=== PATIENT | male | born 1965 | race Caucasian/White ===

== ENCOUNTER 2024-10-06 14:21 | Emergency (ER) | payer OTHER, SELFPAY ==
--- OUTSIDE RECORDS SUMMARY | 2024-10-06 14:34 | XMS_ITS | Encounter Summary ---
Author Organization [facility] Address [address] [place] [address] Phone Care Team Providers Care Denture Technician Name Role Phone Chris Wong MD Unavailable Abigail Hernandez APRN, LAUNDRY HOUSEKEEPING AIDE Unavailable +- [phone] Lamont Cerda MD Primary Care Provider [phone] Karlie Cloud APRN, LAUNDRY HOUSEKEEPING AIDE Unavailable [phone] Encounter Details Date Type Department Care Team (Late st Contact Info) Description 09/16/2024 Results Follow-Up [facility] - Pulmonology & Sleep Medicine [facility] #2 [place] [id number] Karlie Cloud APRN, LAUNDRY HOUSEKEEPING AIDE #[address] [address] Social History Tobacco Use Types Packs/Day Years Used Date Smoking Tobacco: Former Cigarettes Q uit: 03/06/2004 Smokeless Tobacco: Never Alcohol Use Standard Drinks/Week Comments No 0 (1 standard drink = 0.6 oz pur e alcohol) [facility] Utilities Answer Date Recorded In the past 12 months has e electric, gas, oil, or water company threatened to shut off services in your home? Patient declined 11/13/2023 Social Connection and Isolation Panel [NHANES] A nswer Date Recorded In a typical week, how many times do you talk on the phone with family, friends, or neighbors? Patient declined 11/13/2023 How often do you get togethe r with friends or relatives? Patient declined 11/13/2023 How often do you attend yazidi or presybeterian serv ices? Patient declined 11/13/2023 Do you belong to any clubs o r organizations such as yazidi groups, unions, fraternal or athletic groups, or school groups? Patient declined 11/13/2023 How often do you attend meet ings of the clubs or organizations you belong to? Patient declined 11/13/2023 Are you , , di vorced, , never , or living with a partner? Patient declined 11/13/2023 AUDIT-C Answer Date Recorded Q1: How often do you have a drink containing alc ohol? Patient declined 11/13/2023 Q2: How many drinks containi ng alcohol do you have on a typical day when you are drinking? Patient declined 11/13/2023 Q3: How often do you have si x or more drinks on one occasion? Patient declined 11/13/2023 Overall Financial Resource Strain (CARDIA) Answe r Date Recorded How hard is it for you to pa y for the very basics like food, housing, medical care, and heating? Patient declined 11/13/2023 PHQ-2 Answer Date Recorded Total Score - Questions 1-9 8 10/0 11/2022 [facility] - Occupational Stress Questionnaire Answer Date Recorded Do you feel stress - tense, restless, nervous, or anxious, or unable to sleep at night because your mind is troubled all the time - these days? Patient declined 11/13/2023 Exercise Vital Sign Answer Date Recorde d On average, how many days pe r week do you engage in moderate to strenuous exercise (like a brisk walk)? Patient declined On average, how many minutes do you engage in exercise at this level? Patient declined 11/13/2023 Hunger Vital Sign Answer Date Recorded Within the past 12 months, y ou worried that your food would run out before you got the money to buy more. Patient declined Within the past 12 months, t he food you bought just didn't last and you didn't have money to get more. Patient declined PRAPARE - Transportation Answer Date Re corded In the past 12 months, has l ack of transportation kept you from medical appointments or from getting medications? Patient declined 11/13/2023 In the past 12 months, has l ack of transportation kept you from meetings, work, or from getting things needed for daily living? Patient declined 11/13/2023 Housing Stability Vital Sign Answer Gilberto e Recorded In the last 12 months, was t here a time when you were not able to pay the mortgage or rent on time? Patient declined 11/13/19 24 Number of Places Lived in the Last Year Not on f ile 11/13/2023 In the last 12 months, was t here a time when you did not have a steady place to sleep or slept in a long term (including now)? Patient declined 11/13/2023 Sexually Active Control Partners Comments Yes Female Sex and Gender Information Value Date Recorded Sex Assigned at Not on file Legal Sex Male 12:35 AM CDT Gender Identity Not on file Sexual Orientation Not on file documented as of this encounter Plan of Treatment Upcoming Encounters Date Type Department Care Team (Late st Contact Info) Description 11/18/2024 9:00 AM CDT [facility] - [facility]iology - [place] #2 [place] [address] Abigail Hernandez APRN, LAUNDRY HOUSEKEEPING AIDE #2 [facility] [address] [place] [address] 11/28/2024 10:30 AM CDT Office [facility] - Family Medicine - [place] #2 [place] [address] Brian Colbert, CORPORATE GENERAL MANAGER, LAUNDRY HOUSEKEEPING AIDE #2 [facility] [address] [place] [address] 03/16/2025 8:30 AM CDT [facility] - [place] #2 [place] [address] Karlie Cloud APRN, LAUNDRY HOUSEKEEPING AIDE #[address] [facility] [address] [place] [address] documented as of this encounter Visit Diagnoses Not on filedocumented in this encounter Additional Health Concerns Assessment Noted Time PHQ-9 Depression Total Score: 8 05/30/20 23 10:39 AM CDT documented as of this encounter Care Teams Denture Technician Relationship Specialty Start Date End Date Lamont Cerda MD [address] [facility] [address] [place] [address] PCP - General Family Medicine 09/10/23 Chris Wong MD [address] [place] [address] Consulting Physician Pulmonary Disease 11/15/21 Abigail Hernandez APRN, LAUNDRY HOUSEKEEPING AIDE #2 [facility] [address] [place] [address] Nurse Practitioner Cardiology 08/22/23 Karlie Cloud APRN, GIRMA #[address] [facility] [address] [place] [address] Nurse Practitioner Advanced Practice Nurse 11/20/22 documented as of this encounter
--- OUTSIDE RECORDS SUMMARY | 2024-10-06 14:34 | XMS_ITS | Referral Summary ---
Author Organization [facility] Address [address] [place] [address] Care Team Providers Care Tax Revenue Officer Name Role Phone Lamont Cerda MD Primary Care Provider [phone] Allergies Active Allergy Reactions Criticality Noted Date Comments Naproxen Shortness of breath High 06/14/2024 Dye Vomiting Low 12/02/2017 ivp dye Fd And C Red No.40 Vomiting Low 12/02/2017 ivp dye Fentanyl Other (See comments) Low 11/14/2023 States during another procedure received Fentanyl and caused a bad reaction where he had to be given a reversal agent, does not remember exactly the reaction. Ibuprofen Shortness of breath High 11/14/2023 Iodinated Contrast Media Itching High 09/13/2020 Pregabalin Other (See comments) Low 10/17/2023 Blurry vision Red Dye Diarrhea Low 12/02/2017 ivp dye Medications albuterol HFA (PROVENTIL HFA,VENTOLIN HFA,PROAIR HFA) 90 mcg/actuation inhaler Inhale 2 puffs every 6 (six) hours as needed for wheezing Active fluticasone (FLONASE) 50 mcg/actuation nasal spray Administer 1 spray into each nostril 2 (two) times a day as needed for rhinitis Active Breztri Aerosphere 160-9-4.8 mcg/actuation inhaler INHALE 2 PUFFS BY MOUTH IN THE MORNING AND AT BEDTIME Active gabapentin (NEURONTIN) 100 mg capsule Take 1 capsule (100 mg total) by mouth 3 (three) times a day Active montelukast (SINGULAIR) 10 mg tablet Take 1 tablet (10 mg total) by mouth nightly [address] (PROTONIX) 40 mg EC tablet Take 1 tablet (40 mg total) by mouth daily Active multivitamin with minerals tablet Take 1 tablet by mouth daily Active aspirin 81 mg enteric coated tablet Take 1 tablet (81 mg total) by mouth daily Active ascorbic acid (VITAMIN C) 500 mg tablet,chewable Take 1 tablet/chew tab (500 mg total) by mouth 2 (two) times a day 60 tablet/chew tab 4 Active Additional Information Patient not taking.Reported on 06/14/2024 cholecalciferol (VITAMIN D-3) 2000 unit capsule Take 1 capsule (2,000 Units total) by mouth daily 15 capsule 4 Active Additional Information Patient not taking.Reported on 06/14/2024 ondansetron (ZOFRAN) 4 mg tabletIndicatio ns:Prevention of Post-Operative Nausea and Vomiting Take 1 tablet (4 mg total) by mouth every 6 (six) hours as needed for nausea or vomiting 20 tablet 1 4 Active Additional Information Patient not taking.Reported on 03/07/2024 senna-docusate (PERICOLACE) 8.6-50 mg Take 1 tablet by mouth 2 (two) times a day as needed for constipation 20 tablet 1 4 Active Additional Information Patient not taking.Reported on 03/07/2024 HYDROcodone-arlin taminophen (NORCO) 5-325 mg per tabletIndicatio ns:Pain Take 1 tablet by mouth every 6 (six) hours as needed for pain 15 tablet 4 Active Additional Information Patient not taking.Reported on 03/07/2024 azithromycin (ZITHROMAX) 250 mg tablet Take 2 tablets the first day, then 1 tablet daily for 4 days. 6 tablet 4 Active Active Problems Problem Noted Date Diagnosed Date Carpal tunnel syndrome on left 02/11/2024 Cubital tunnel syndrome on left 02/11/2024 Carpal tunnel syndrome on right 11/12/2023 Cubital tunnel syndrome on right 11/12/2023 Bilateral carpal tunnel syndrome 09/13/2023 Obesity (BMI 30-39.9) 09/13/2023 Asthma 01/01/2019 COPD (chronic obstructive pulmonary disease) 03/2019 Gout 01/01/2019 Renal stone 12/20/2018 Overview (12/20/2018): Added automatically from request for surgery KADIE (obstructive sleep apnea) 03/20/2017 Non morbid obesity due to excess calories 2016 Panlobular emphysema 03/20/2017 Social History Tobacco Use Types Packs/Day Years Used Date Smoking Tobacco: Former Cigarettes 1.5 8 2 004 - 2011 Smokeless Tobacco: Never Tobacco Cessation:Counseling Given: Not Answered Alcohol Use Standard Drinks/Week Comments Not Currently 0 (1 standard drink = 0.6 oz pur e alcohol) AUDIT-C Answer Date Recorded Q1: How often do you have a drink containing alcohol? Monthly or less 02/12/2024 Q2: How many drinks containi ng alcohol do you have on a typical day when you are drinking? Patient does not drink Q3: How often do you have si x or more drinks on one occasion? Never 02/12/2024 Personal Safety Answer Date Recorded Have you ever been in or are you currently in a harmful physical or emotional relationship or is someone making you feel afraid or unsafe? 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 Gender Identity Not on file Sexual Orientation Not on file Last Filed Vital Signs Vital Sign Reading Time Taken Comments Blood Pressure 104/74 06/14/2024 6:48 PM CDT Pulse 71 06/14/2024 6:48 PM CDT Temperature 36.1 C (97 F) 06/14/2024 6:48 PM CDT Respiratory Rate 18 06/14/2024 6:48 PM CDT Oxygen Saturation 97% 06/14/2024 6:48 PM CDT Inhaled Oxygen Concentration - - Weight 105.7 kg (233 lb) 06/14/2024 6:48 PM CDT Height 180.3 cm (5' 11 ) 06/14/2024 6:48 PM CDT Body Mass Index 32.5 06/14/2024 6:48 PM CDT Plan of Treatment Not on file Medical Devices Implanted Type Area Nailer Hand Device Identifier Shelf Expiration Date Model / Serial / Lot Findersfee Edgar 192-123 Polaris Ultra Nautilus 5fr 2.1fr 26cm 2 Durometer Taper Tip Low Latex Free - Sn/A - [id number] Implanted:Qty: 1 on 12/13/2018 by Adam Dee MD at [facility] Stent Right: [employer] [place] [employer] Edgar 09/01/2021 192-123 / N/A / [id number] Insurance Advance Directives For more information, please contact: [phone] * Full Code (Latest Code Status on File) Date Activated Date Inactivated Comments 01/09/2019 9:06 AM 01/09/2019 2:36 PM * Full Code Date Activated Date Inactivated Comments 12/13/2018 5:46 AM 12/13/2018 7:44 PM Care Teams Tax Revenue Officer Relationship Specialty Start Date End Date Lamont Cerda MD [address] [place] [address] PCP - General Family Medicine 09/26/24
--- OUTSIDE RECORDS SUMMARY | 2024-10-06 14:34 | XMS_ITS | Clinical Summary ---
Author Organization [facility] Address [address] [place] [address] Care Team Providers Care Cardiac Rehabilitation Program Director Name Role Phone Lamont Cerda MD Primary Care Provider [phone] Allergies Active Allergy Reactions Criticality Noted Date [...] to excess calories 2016 Panlobular emphysema 03/20/2017 Surgical History Surgery Date Site/Laterality Comments TONGUE SURGERY TONSILLECTOMY CYSTOSCOPY W/ URETERAL STENT PLACEMENT 11/25/2018 - 12/24 CARPAL TUNNEL RELEASE Right Medical History Medical History Date Comments Nephrolithiasis Gout Emphysema lung (HCC) Tobacco abuse Sleep apnea Obesity Asthma 01/01/2019 COPD (chronic obstructive pulmonary disease) (HC C) 01/01/2019 KADIE (obstructive sleep apnea) 03/20/2017 GERD (gastroesophageal reflux disease) Depression Delayed emergence from general anesthesia Family History Medical History Relation Name Comments Diabetes Brother Alcohol abuse Father Diabetes Father Heart attack Father Deep vein thrombosis Mother Heart attack Mother Gout Other Hypertension Other Kidney disease Other Lung disease Other Relation Name Status Comments Brother Father Mother Other Social History Tobacco Use Types Packs/Day Years Used Date Smoking Tobacco: Former Cigarettes 1.5 8 2 - 2011 Smokeless Tobacco: Never Tobacco Cessation:Counseling [...] on file 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 Gender Identity Not on file Sexual Orientation Not on file Obstetrics History Last Filed Vital Signs Vital Sign Reading [...] 06/14/2024 6:48 PM CDT Plan of Treatment Health Maintenance Due Date Last Done Comments Colon Cancer Screening-Colonoscopy 1967 Depression Screening 1967 Hepatitis C Screening 1967 Prostate Cancer Screening-PSA 1967 Pneumococcal vaccine <65 (1 of 2 - PCV) 1973 Hepatitis B Screening 1985 Regular Well Visit/Exam 18-64 1985 Zoster Vaccine (1 of 2) 2017 Covid-19 Vaccine (3 - season) 2024, 02/16/2021 Influenza Vaccine (#1) 2024 DTaP/Tdap/Td Vaccine (2 - Td or Tdap) 06/07/202507/2015 Medical Devices Implanted Type Area Roll Up Machine Operator Device Identifier Shelf Expiration Date Model / Serial / Lot Qminder Edgar 192-123 Polaris Ultra Nautilus 5fr 2.1fr 26cm 2 Durometer Taper Tip Low Latex Free - Sn/A - [id number] Implanted:Qty: 1 on 12/13/2018 by Adam Dee MD at [facility] Stent Right: [employer] [place] [employer] Edgar 09/01/2021 192-123 / N/A / [id number] Insurance Advance Directives For more information, please contact: [phone] * Full Code (Latest Code Status on File) Date Activated Date Inactivated Comments 01/09/2019 9:06 AM 01/09/2019 2:36 PM * Full Code Date Activated Date Inactivated Comments 12/13/2018 5:46 AM 12/13/2018 7:44 PM Care Teams Cardiac Rehabilitation Program Director Relationship Specialty Start Date End Date Lamont Cerda MD [address] [place] [address] PCP - General Family Medicine 09/26/24
--- OUTSIDE RECORDS SUMMARY | 2024-10-06 14:34 | XMS_ITS | Encounter Summary ---
Author Organization [facility] Address [address] [place] [address] Phone Care Team Providers Care Administrative Operations Coordinator Name Role Phone Chris Wong MD Unavailable Abigail Hernandez APRN, REGIONAL BUSINESS MANAGER Unavailable + [phone] Lamont Cerda MD Primary Care Provider [phone] Karlie Cloud APRN, REGIONAL BUSINESS MANAGER Unavailable [phone] Reason for Visit * Reason Comments Medication Refill Encounter Details Date Type Department Care Team (Late st Contact Info) Description 11/21/2023 Refill [facility] - Family Medicine [facility] #2 [place] [id number] Lamont Cerda MD #[address] [address] Medication Refill Social History Tobacco Use Types Packs/Day Years Used Date Smoking Tobacco: Former Cigarettes Q uit: 03/06/2004 Smokeless Tobacco: Never Alcohol Use Standard Drinks/Week Comments No 0 (1 standard drink = 0.6 oz pur e alcohol) [facility] Utilities Answer Date Recorded In the [...] declined 11/13/2023 How often do you attend mosque or bahai serv ices? Patient declined 11/13/2023 Do you belong to any clubs o r organizations such as mosque groups, unions, fraternal or athletic groups, or [...] Score - Questions 1-9 8 10/0 11/2022 [facility] - Occupational Stress Questionnaire Answer Date Recorded [...] place to sleep or slept in a senior living (including now)? Patient declined 11/13/2023 Sexually Active Control Partners Comments Yes Female Sex and Gender Information Value Date Recorded Sex Assigned at Not on file Legal Sex Male 12:35 AM CDT Gender Identity Not on file Sexual Orientation Not on file documented as of this encounter Miscellaneous Notes * Telephone Encounter - Lisa Zepeda RN - 11/21/2023 10:27 AM CDT Medication failed the protocol, provider to review and approve the medication order if appropriate. Requested Prescriptions Pending Prescriptions Disp Refills gabapentin (NEURONTIN) 100 MG Capsule [Pharmacy Med Name: GABAPENTIN 100MG CAPSULES] 90 Capsule 2 Sig: TAKE 1 CAPSULE BY MOUTH THREE TIMES DAILY Not Delegated - Anticonvulsants Excluding Benzodiazepines Protocol Failed - 11/21/2023 8:53 AM Failed - This refill cannot be delegated Passed - Visit with relevant provider in past 12 months or upcoming 90 days Recent Visits Date Type Provider Dept 11/13/23 Office Visit Brian Colbert APRN, GIRMA [facility] [place] 10/17/23 Telemedicine Lamont Cerda MD [facility] 09/13/23 Office Visit Lamont Cerda MD [facility] 05/30/23 Office Visit Cezar Worthington MD [facility] 11/29/22 Office Visit [facility] [place] Showing recent visits within past 365 days and meeting all other requirements Future Appointments Date Type Provider Dept 12/18/23 Appointment Lamont Cerda MD [facility] 02/04/24 Appointment Brian Colbert APRN, GIRMA [facility] Showing future appointments within next 90 days and meeting all other requirements documented in this encounter Plan of Treatment Upcoming Encounters Date Type Department Care Team (Late st Contact Info) Description 11/18/2024 9:00 AM CDT Office Visit [facility] Medical [facility] - Cardiology - [place] #2 [facility] [place] [address] Abigail Hernandez APRN, REGIONAL BUSINESS MANAGER #2 [facility] [address] [place] [address] 11/28/2024 10:30 AM CDT Office Visit [facility] Medical [facility] - Family Medicine - [place] #2 [facility] [place] [address] Brian Colbert APRN, REGIONAL BUSINESS MANAGER #2 [facility] [address] [place] [address] 03/16/2025 8:30 AM CDT Office Visit [facility] - Pulmonology & Sleep Medicine - [place] #2 [facility] [place] [address] Karlie Cloud APRN, REGIONAL BUSINESS MANAGER #2 [facility] [address] [place] [address] documented as of this encounter Visit Diagnoses Not on filedocumented in this encounter Additional Health Concerns Assessment Noted Time PHQ-9 Depression Total Score: 8 05/30/20 10:39 AM CDT documented as of this encounter Care Teams Administrative Operations Coordinator Relationship Specialty Start Date End Date Lamont Cerda MD #2 [facility] [address] [place] [address] PCP - General Family Medicine 09/10/23 Chris Wong MD [address] [place] [address] Consulting Physician Pulmonary Disease 11/15/21 Abigail Hernandez APRN, REGIONAL BUSINESS MANAGER #2 [facility] [address] [place] [address] Nurse Practitioner Cardiology 08/22/23 Karlie Cloud APRN, REGIONAL BUSINESS MANAGER #[address] [facility] [address] [place] [address] Nurse Practitioner Advanced Practice Nurse 11/20/22 documented as of this encounter
--- OUTSIDE RECORDS SUMMARY | 2024-10-06 14:34 | XMS_ITS | Encounter Summary ---
Author Organization [facility] Address [address] [place] [address] Phone Care Team Providers Care Oracle Applications Developer Name Role Phone Chris Wong MD Unavailable Jaz Beckham MD Primary Care Provider Unav ailable Provider, None Primary Care Provider Unavailcourtney e Chris Wong MD Unavailable Cezar Worthington MD Primary Care Provider [phone] Abigail Hernandez NEONATAL NURSE PRACTITIONER, INSURANCE SALES ASSISTANT Unavailable + [phone] Lamont Cerda MD Primary Care Provider [phone] Karlie Cloud APRN, INSURANCE SALES ASSISTANT Unavailable [phone] Reason for Visit * Reason Comments Medication Refill Encounter Details Date Type Department Care Team (Late st Contact Info) Description 09/23/2020 Refill [facility] #1 [place] [address] Chris Wong MD #2 [place] [address] Medication Refill Social History Tobacco Use Types Packs/Day Years Used Date Smoking Tobacco: Former Cigarettes Q uit: 03/06/2004 Smokeless Tobacco: Never Alcohol Use Standard Drinks/Week Comments No 0 (1 standard drink = 0.6 oz pur e alcohol) Sex and Gender Information Value Date Recorded Sex Assigned at Not on file Legal Sex Male 12:35 AM CDT Gender Identity Not on file Sexual Orientation Not on file COVID-19 Exposure Response Date Recorded In the last month, have you been in contact with someone who was confirmed or suspected to have Coronavirus / COVID-19? 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 documented as of this encounter Plan of Treatment Upcoming Encounters Date Type Department Care Team (Late st Contact Info) Description 11/18/2024 9:00 AM CDT Office Visit [facility] Medical [facility] - Cardiology - [place] #2 [place] [address] Abigail Hernandez NEONATAL NURSE PRACTITIONER, INSURANCE SALES ASSISTANT #2 [facility] [address] [place] [address] 11/28/2024 10:30 AM CDT Office Visit [facility] - Family Medicine - [place] #2 [place] [address] Brian Colbert, NEONATAL NURSE PRACTITIONER, INSURANCE SALES ASSISTANT #2 [facility] [address] [place] [address] 03/16/2025 8:30 AM CDT Office Visit [facility] Medical [facility] - Pulmonology & Sleep Medicine - [place] #[address] [place] [address] Karlie Cloud NEONATAL NURSE PRACTITIONER, INSURANCE SALES ASSISTANT #2 [facility] [address] [place] [address] documented as of this encounter Visit Diagnoses Not on filedocumented in this encounter Care Teams Oracle Applications Developer Relationship Specialty Start Date End Date Jaz Beckham MD PCP - General Family Medicine 01/05/17 11/14/21 Provider, None CT PCP - General 11/15/21 11/27/21 Cezar Worthington MD #2 [facility] [address] [place] [address] PCP - General Family Medicine 11/28/21 09/09/23 Lamont Cerda MD #[address] [facility] [address] [place] [address] PCP - General Family Medicine 09/10/23 Chris Wong MD Consulting Physician Pulmonary Disease 11/20/22 4 Chris Wong MD #[address] [place] [address] Consulting Physician Pulmonary Disease 11/15/21 Abigail Hernandez APRN, INSURANCE SALES ASSISTANT #2 [facility] [address] [place] [address] Nurse Practitioner Cardiology 08/22/23 Karlie Cloud APRN, INSURANCE SALES ASSISTANT #[address] [facility] [address] [place] [address] Nurse Practitioner Advanced Practice Nurse 11/20/22 documented as of this encounter
--- OUTSIDE RECORDS SUMMARY | 2024-10-06 14:34 | XMS_ITS | Clinical Summary ---
Author Organization [facility] Address [address] [facility] [place] [address] Phone Care Team Providers Care Child Care Center Administrator Name Role Phone Chris Wong MD Unavailable Abigail Hernandez APRN, CLAY MIXER Unavailable +- [phone] Lamont Cerda MD Primary Care Provider [phone] Karlie Cloud MEDICAL RECORDS MANAGER, CLAY MIXER Unavailable [phone] Allergies Active Allergy Reactions Criticality Noted Date Comments Iodinated Contrast Media Itching High 09/13/2020 Pregabalin Other (see Comments) 10/17/2023 Blurry vision Red Dye #40 (Allura Red) Vomiting Low 12/02/2017 ivp dye Medications montelukast (SINGULAIR) 10 MG Tablet TAKE 1 TABLET BY MOUTH EVERY EVENING 90 Tablet 3 05/29/20 23 Active aspirin EC 81 MG Tablet Delayed Response Take 81 mg by mouth daily. Active Multiple Vitamin (MULTIVITAMIN ADULT PO) Take 1 Tablet by mouth daily. Active Cholecalciferol (D2000 Ultra Strength) 2000 UNIT Capsule Take 2,000 Units by mouth. 11/14/19 24 Active ascorbic acid 500 MG Tablet Take 500 mg by mouth. 11/14/19 24 Active pantoprazole (PROTONIX) 40 MG Tablet Delayed Response TAKE 1 TABLET BY MOUTH DAILY 30 Tablet 11 02/21/20 24 Active ketorolac, ophth, (ACULAR) 0.5 % Solution 04/18/20 Active prednisoLONE acetate (PRED FORTE) 1 % Suspension 04/22/20 Active fluticasone (FLONASE) 50 MCG/ACT Suspension SHAKE LIQUID AND USE 2 SPRAYS IN EACH NOSTRIL DAILY DIRECTED 16 g 5 06/20/20 Active Budeson-Glycopyrro l-Formoterol 160-9-4.8 MCG/ACT AerosolIndications :Panlobular emphysema (HCC) take 2 Puffs by inhalation in the morning and at bedtime. 10.7 g 3 07/17/20 24 Active albuterol 108 (90 Base) MCG/ACT Aerosol Solution take 2 Puffs by inhalation every 4 hours as needed for Wheezing. 8.5 g 3 07/28/20 24 Active acetaminophen-code ine (TYLENOL #3) 300-30 MG TabletIndications: Left carpal tunnel syndrome Take 1 Tablet by mouth Daily as needed for Mild or more severe pain. 30 Tablet 08/13/20 Active fluticasone (FLONASE) 50 MCG/ACT Suspension 1 Naylor by Nasal route daily. Use in each nostril as directed. 16 g 1 08/13/20 Active Additional Information Patient not taking.Reported on 09/15/2024 gabapentin (NEURONTIN) 100 MG Capsule TAKE 1 CAPSULE BY MOUTH THREE TIMES DAILY 90 Capsule 2 08/16/20 Active azelastine (ASTELIN) 0.1 % SolutionIndication s:Chronic rhinosinusitis with multiple nasal polyps 2 Sprays by Nasal route 2 times daily. Use in each nostril as directed 39 mL 3 09/15/19 Active Dupilumab (Dupixent) 300 MG/2ML Solution Auto-injectorIndic ations:Chronic rhinosinusitis with multiple nasal polyps 2 mL by Subcutaneous route every 14 days. 4 mL 12 09/19/19 Active Active Problems Problem Noted Date Diagnosed Date Eosinophilic asthma 09/15/2024 Chronic rhinosinusitis with multiple nasal polyp s 09/15/2024 Subacute maxillary sinusitis 08/13/2024 History of cataract 04/30/2024 Seasonal allergies 04/30/2024 Left carpal tunnel syndrome 12/18/2023 Personal history of tobacco use, presenting hazards to health 12/18/2023 Ruptured aneurysm of ascending aorta 12/18/2023 Bilateral carpal tunnel syndrome 10/17/2023 Right carpal tunnel syndrome 09/13/2023 Obesity (BMI 30-39.9) 09/13/2023 KADIE (obstructive sleep apnea) 03/20/2017 Non morbid obesity due to excess calories 2016 Panlobular emphysema 03/20/2017 Encounters Date Type Department Care Team Description 09/17/2024 Telephone [facility] Pulmonology & Sleep [facility] [address] [place] [address] Karlie Clodu APRN, GIRMA Prior Authorization (Dupixent) 09/16/2024 Results Follow-Up [facility] Sleep [facility] [address] [place] [address] Karlie Cloud APRN, GIRMA 09/15/2024 9:00 AM INDEPENDENT JEWELER Office Visit [facility] Pulmonology Sleep [facility] [address] [place] [address] Karlie Cloud APRN, GIRMA KADIE (obstructive sleep apnea) (Primary Dx); Eosinophilic asthma; Chronic rhinosinusitis with multiple nasal polyps Discharge Disposition: Discharged to home or Selfcare 09/15/2024 Travel 08/16/2024 Refill [facility] #[address] [place] [address] Lamont Cerda MD Medication Refill 08/15/2024 [facility]phone [facility] [place] [address] Brian Colbert APRN, CLAY MIXER 08/13/2024 1:00 PM INDEPENDENT JEWELER Office Visit [facility] [address] [place] [address] Lamont Cerda MD Subacute maxillary sinusitis (Primary Dx); Left carpal tunnel syndrome; Obesity (BMI 30-39.9) Discharge Disposition: Discharged to home or Selfcare 08/13/2024 Travel 07/28/2024 [facility] [address] [place] [address] Karlie Cloud APRN, GIMRA Medication Refill 07/21/2024 [facility]ill [facility] [address] [place] [address] Karlie Cloud APRN, GIRMA Medication Refill 07/17/2024 [facility]ill [facility] [address] [place] [address] Chris Wong MD Medication Refill from Last 3 Months Immunizations Immunization Administration Dates Next Due TDAP Vaccine 06/07/2015 Family History Medical History Relation Name Comments Congestive Heart Failure Father Congestive Heart Failure Mother Relation Name Status Comments Father Mother Social History Tobacco Use Types Packs/Day Years Used Date Smoking Tobacco: Former Cigarettes Q uit: 03/06/2004 Smokeless Tobacco: Never Tobacco Cessation:Counseling Given: No Alcohol Use Standard Drinks/Week Comments No 0 (1 standard drink = 0.6 oz pur e alcohol) [facility] Utilities Answer Date Recorded In the [...] declined 11/13/2023 How often do you attend restoration or yazidi serv ices? Patient declined 11/13/2023 Do you belong to any clubs o r organizations such as restoration groups, unions, fraternal or athletic groups, or [...] Score - Questions 1-9 8 10/0 11/2022 [facility] - Occupational [...] place to sleep or slept in a assisted (including now)? Patient declined 11/13/2023 Sexually Active Control Partners Comments Yes Female Sex and Gender Information Value Date Recorded Sex Assigned at Not on file Legal Sex Male 12:35 AM CDT Gender Identity Not on file Sexual Orientation Not on file Last Filed Vital Signs Vital Sign Reading Time Taken Comments Blood Pressure 114/60 09/15/2024 9:01 AM INDEPENDENT JEWELER Pulse 59 09/15/2024 9:01 AM INDEPENDENT JEWELER Temperature 36.3 C (97.3 F) 09/15/2024 9:01 AM INDEPENDENT JEWELER Respiratory Rate 14 09/15/2024 9:01 AM INDEPENDENT JEWELER Oxygen Saturation 100% 09/15/2024 9:01 AM INDEPENDENT JEWELER Inhaled Oxygen Concentration - - Weight 105.6 kg (232 lb 11.2 oz) 09/15/2024 9:01 AM INDEPENDENT JEWELER Height 177.8 cm (5' 10 ) 09/15/2024 9:01 AM INDEPENDENT JEWELER Body Mass Index 33.39 09/15/2024 9:01 AM INDEPENDENT JEWELER Plan of Treatment Upcoming Encounters Date Type Department Care Team (Late st Contact Info) Description 11/18/2024 9:00 AM CDT Office Visit [facility] - Cardiology - [place] [address] [place] [address] Abigail Hernandez APRN, CLAY MIXER [address]2 [facility] [address] [place] [address] 11/28/2024 10:30 AM CDT [facility] Medicine - [place] [address] [place] [address] Brian Colbert, MEDICAL RECORDS MANAGER, CLAY MIXER #2 [facility] [address] [place] [address] 03/16/2025 8:30 AM CDT [facility] - [place] [address]2 [place] [address] Karlie Cloud, MEDICAL RECORDS MANAGER, CLAY MIXER [address] [facility] [address] [place] [address] Health Maintenance Due Date Last Done Comments Hepatitis C Virus (HCV) Screening 1967 Hepatitis B Immunization (1 of 3 - 19+ 3-dose series) 1986 Pneumococcal Immunization (5 0+ years) (1 of 2 - PCV) 1986 Colonoscopy 2012 Colorectal Cancer Screening 2012 Cologuard 2017 Immunochemical Fecal Occult Blood 2017 Zoster Immunization (1 of 2) 2017 Influenza Immunization (#1) 2024 SARS-COV-2 Immunization ( season) 2024 03/09/2021, 02/16/2021 Td Immunization Every 10 Yea rs (Adults With 1 Tdap) 06/07/2025 06/07/2015 Respiratory Syncytial Virus (RSV) Immunization (Adult) (1 - 1-dose 75+ series) 2042 DTaP/Tdap/Td Immunization Discontinued 06/07/2015 PSA Discussion Completed 09/14/2023, 11/28/2021 Meningococcal Immunization (ACWY) Aged Out No longer eligible based on patient's age to complete this topic Rotavirus Immunization Aged Out No lo nger eligible based on patient's age to complete this topic Medical Devices Implanted Type Area Burning Machine Operator Device Identifier Shelf Expiration Date Model / Serial / Lot Implant Nasal 16mm Steroid Release Zip Tie Propel Mometasone Furoate 370 Mcg Mini 4mm - [id number] Implanted:Qty: 2 on 09/13/2020 by Josh Hernandez MD at [facility] IMPLANT [employer] [id number] / [id number] / [id number] Procedures Procedure Name Priority Date/Time Associated Diagnosis Comments CBC WITH AUTO DIFFERENTIAL Routine 09/16/2024 3:22 PM INDEPENDENT JEWELER Eosinophilic asthma COMPLETE BLOOD COUNT (CBC) WITH DIFF Routine 09/16/2024 3:22 PM INDEPENDENT JEWELER Eosinophilic asthma PSA SCREEN Routine 09/14/2023 8:38 AM INDEPENDENT JEWELER Screening for prostate cancer from Last 3 Months or Most Recently Relevant to Health Maintenance Results * CBC WITH AUTO DIFFERENTIAL (09/16/2024 3:22 PM INDEPENDENT JEWELER) WBC 6.71 4.00 - 12.00 10(3)/mcL 09/16/2024 3:56 PM [facility] RBC 4.56 4.40 - 5.80 10(6)/mcL 09/16/2024 3:56 PM [facility] HEMOGLOBIN (HGB) 13.8 13.0 - 16.5 g/dL 09/16/2024 3:56 PM [facility] HEMATOCRIT (HCT) 40.9 38.0 - 50.0 % 09/16/2024 3:56 PM [facility] MCV 89.7 82.0 - 96.0 fL 09/16/2024 3:56 PM [facility] MCH 30.3 26.0 - 32.0 pg 09/16/2024 3:56 PM [facility] MCHC 33.7 31.0 - 36.0 g/dL 09/16/2024 3:56 PM [facility] PLATELET COUNT 229 140 - 440 10(3)/mcL 09/16/2024 3:56 PM [facility] RDW 12.7 11.8 - 15.5 % 09/16/2024 3:56 PM [facility] MPV 10.6 8.0 - 12.6 fL 09/16/2024 3:56 PM [facility] NEUTROPHILS 46.0 40.0 - 68.0 % 09/16/2024 3:56 PM [facility] LYMPHOCYTES 37.3 19.0 - 49.0 % 09/16/2024 3:56 PM [facility] MONOCYTES 8.9 3.0 - 13.0 % 09/16/2024 3:56 PM [facility] EOSINOPHILS 6.9 0.0 - 8.0 % 09/16/2024 3:56 PM INDEPENDENT JEWELER [facility] BASOPHILS 0.9 0.0 - 1.0 % 09/16/2024 3:56 PM INDEPENDENT JEWELER [facility] ABSOLUTE NEUTROPHILS 3.09 1.40 - 5.30 10(3)/[facility] 09/16/2024 3:56 PM INDEPENDENT JEWELER [facility] ABSOLUTE LYMPHOCYTES 2.50 0.90 - 3.30 10(3)/[facility] 09/16/2024 3:56 PM INDEPENDENT JEWELER [facility] ABSOLUTE MONOCYTES 0.60 0.10 - 0.90 10(3)/[facility] 09/16/2024 3:56 PM [facility] ABSOLUTE EOSINOPHIL 0.46 0.00 - 0.50 10(3)/[facility] 09/16/2024 3:56 PM [facility] ABSOLUTE BASOPHILS 0.06 0.00 - 0.10 10(3)/[facility] 09/16/2024 3:56 PM INDEPENDENT JEWELER [facility] NRBC PER 100 WBC 0 09/16/19 25 3:56 PM [facility] Blood Venipuncture / Unknown 09/16/2024 3:22 PM INDEPENDENT JEWELER 09/16/2024 3:51 PM INDEPENDENT JEWELER Karlie Cloud APRN, CLAY MIXER HEMATOLOGY ORDERABLES Final Result [facility] [address] [place] [address] * PSA SCREEN (09/14/2023 8:38 AM INDEPENDENT JEWELER) PSA SCREEN, TOTAL 0.92 <4.00 ng/mL 09/14/2023 9:57 AM INDEPENDENT JEWELER [facility] Blood Venipuncture / Unknown 09/14/2023 8:38 AM INDEPENDENT JEWELER 09/14/2023 9:03 AM INDEPENDENT JEWELER Narrative [facility] - 09/14/2023 9:57 AM INDEPENDENT JEWELER The ALINITY Total PSA assay is a Chemiluminescent Microparticle Immunoassay (CMIA) for the quantitative determination of total PSA (both free PSA and PSA complexed to [id number]) in human serum. Total PSA values obtained with different assay methods, including Villa PSA assays, cannot be used interchangeably. Lamont Cerda MD CHEMISTRY ORDERABLES Final Result [facility] [address] [place] [address] from Last 3 Months or Most Recently Relevant to Health Maintenance Insurance MEDICAID [place] Care Teams Child Care Center Administrator Relationship Specialty Start Date End Date Lamont Cerda MD #2 [facility] [address] [place] [address] PCP - General Family Medicine 09/10/23 Chris Wong MD #2 [place] [phone] Consulting Physician Pulmonary Disease 11/15/21 Abigail Hernandez, MEDICAL RECORDS MANAGER, CLAY MIXER #2 [facility] [address] [place] [address] Nurse Practitioner Cardiology 08/22/23 Karlie Cloud APRN, CLAY MIXER #2 [place] [address] Nurse Practitioner Advanced Practice Nurse 11/20/22
--- OUTSIDE RECORDS SUMMARY | 2024-10-06 14:34 | XMS_ITS | Encounter Summary ---
Author Organization [facility] Address [address] [place] [address] Phone Care Team Providers Care Restaurant And Bar Manager Name Role Phone Chris Wong MD Unavailable Abigail Hernandez APRN, FILM OR TAPE LIBRARIAN Unavailable + [phone] Lamont Cerda MD Primary Care Provider [phone] Karlie Cloud APRN, FILM OR TAPE LIBRARIAN Unavailable [phone] Reason for Visit * Reason Comments Medication Refill Encounter Details Date Type Department Care Team (Late st Contact Info) Description 12/10/2023 Refill [facility] - Pulmonology & Sleep Medicine [facility] [address] [place] [address] Lamont Cerda MD [address] [address] Medication Refill Social History Tobacco Use Types Packs/Day Years Used Date Smoking Tobacco: Former Cigarettes Q uit: 03/06/2004 Smokeless Tobacco: Never Alcohol Use Standard Drinks/Week Comments No 0 (1 standard drink = 0.6 oz pur e alcohol) [facility] Utilities Answer Date Recorded In the [...] declined 11/13/2023 How often do you attend adventist or denominational serv ices? Patient declined 11/13/2023 Do you belong to any clubs o r organizations such as adventist groups, unions, fraternal or athletic groups, or [...] Score - Questions 1-9 8 10/0 11/2022 [facility] - Occupational Stress Questionnaire Answer Date [...] place to sleep or slept in a nursing home (including now)? Patient declined 11/13/2023 Sexually Active Control Partners Comments Yes Female Sex and Gender Information Value Date Recorded Sex Assigned at Not on file Legal Sex Male 12:35 AM CDT Gender Identity Not on file Sexual Orientation Not on file documented as of this encounter Miscellaneous Notes * Telephone Encounter - Shanice Childers RN - 12/10/2023 12:50 PM CDT Medication(s) [facility] Medication Refill Standing Order for Pediatricand Adult Patients. Requested Prescriptions Pending Prescriptions Disp Refills fluticasone (FLONASE) 50 MCG/ACT Suspension [Pharmacy Med Name: FLUTICASONE 50MCG NASAL SP (120) RX] 16 g 5 Sig: SHAKE LIQUID AND USE 2 SPRAYS IN EACH NOSTRIL DAILY DIRECTED Nasal Steroids Protocol Passed - 12/10/2023 8:23 AM Passed - Visit with relevant provider in past 12 months or upcoming 90 days Recent Visits Date Type Provider Dept 11/13/23 Office Visit Brian Colbert APRN, FILM OR TAPE LIBRARIAN [facility] 10/17/23 Telemedicine Lamont Cerad MD [facility] 09/13/23 Office Visit Lamont Cerda MD [facility] 09/10/23 Office Visit Karlie Cloud APRN, FILM OR TAPE LIBRARIAN [facility] Pulm & Sleep [facility] 05/30/23 Office Visit Cezar Worthington MD [facility] 03/05/23 Office Visit Karlie Cloud APRN, CNP [facility] Pulm & Sleep [facility] Showing recent visits within past 365 days and meeting all other requirements Future Appointments Date Type Provider Dept 12/18/23 Appointment Lamont Cerda MD [facility] 02/04/24 Appointment Brian Colbert APRN, CNP [facility] Showing future appointments within next 90 days and meeting all other requirements documented in this encounter Plan of Treatment Upcoming Encounters Date Type Department Care Team (Late st Contact Info) Description 11/18/2024 9:00 AM CDT Office Visit [facility] - Cardiology - [place] [address] [place] [address] Abigail Hernandez APRN, FILM OR TAPE LIBRARIAN #2 [facility] [address] [place] [address] 11/28/2024 10:30 AM CDT Office Visit [facility] Medical [facility] - Family Medicine - [place] #2 [place] [address] Brian Colbert APRN, FILM OR TAPE LIBRARIAN #2 [facility] [address] [place] [address] 03/16/2025 8:30 AM CDT Office Visit [facility] - Pulmonology & Sleep Medicine - [place] #[address] [place] [address] Karlie Cloud APRN, FILM OR TAPE LIBRARIAN #2 [facility] [address] [place] [address] documented as of this encounter Visit Diagnoses Not on filedocumented in this encounter Additional Health Concerns Assessment Noted Time PHQ-9 Depression Total Score: 8 05/30/20 23 10:39 AM CDT documented as of this encounter Care Teams Restaurant And Bar Manager Relationship Specialty Start Date End Date Lamont Cerda MD [address] [facility] [facility] [address] [place] [address] PCP - General Family Medicine 09/10/23 Chris Wong MD [address] [place] [address] Consulting Physician Pulmonary Disease 11/15/21 Abigail Hernandez APRN, FILM OR TAPE LIBRARIAN #2 [facility] [address] [place] [address] Nurse Practitioner Cardiology 08/22/23 Karlie Cloud APRN, FILM OR TAPE LIBRARIAN [address] [facility] [address] [place] [address] Nurse Practitioner Advanced Practice Nurse 11/20/22 documented as of this encounter
--- OUTSIDE RECORDS SUMMARY | 2024-10-06 14:35 | XMS_ITS | Encounter Summary ---
Author Organization [facility] Address [address] [place] [address] Phone Care Team Providers Care Protective Signal Operator Name Role Phone Chris Wong MD Unavailable Jaz Beckham MD Primary Care Provider Unav ailable Provider, None Primary Care Provider Unavailcourtney e Chris Wong MD Unavailable Cezar Worthington MD Primary Care Provider [phone] Abigail Hernandez TOWER CONTROL OPERATOR, RELAY RECORD CLERK Unavailable + [phone] Lamont Cerda MD Primary Care Provider [phone] Karlie Colud TOWER CONTROL OPERATOR, RELAY RECORD CLERK Unavailable [phone] Reason for Referral * Radiology Services (Routine) - Closed Specialty Diagnoses / Procedures Referred By Contcj t Referred To Contact Radiology Diagnoses Pre-op testing Procedures EKG 12 LEAD Gokul Underwood MD #1 [place] [address] Phone: tel: fax: Referral ID Status Reason Start Date Expiration Date Visits Re quested Visits Authorized [id number] Closed 09/01/2020 1 1 TENANCE SERVICE DISPATCHER Encounter Details Date Type Department Care Team (Late st Contact Info) Description 09/01/2020 Transcribe Orders [facility] Preop/Pacu II [address] [place] [address] Gokul Underwood MD [address] [place] [address] Pre-op testing (Primary Dx) Social History Tobacco Use Types Packs/Day Years [...] have Coronavirus / COVID-19? No / Unsure 08/30/2020 10:34 AM MAINTENANCE SERVICE DISPATCHER documented as of this encounter Plan of Treatment Upcoming Encounters Date Type Department Care Team (Late st Contact Info) Description 11/18/2024 9:00 AM CDT [facility] - [place] #2 [place] [address] Abigail Hernandez APRN, RELAY RECORD CLERK #2 [facility] [address] [place] [address] 11/28/2024 10:30 AM CDT [facility] - Family Medicine - [place] #2 [place] [address] Brian Colbert, TOWER CONTROL OPERATOR, RELAY RECORD CLERK #[address] [address] 03/16/2025 8:30 AM CDT [facility] Visit [facility] - Pulmonology & Sleep Medicine - [place] #2 [place] [address] Karlie Cloud, TOWER CONTROL OPERATOR, RELAY RECORD CLERK #2 [place] [id number] documented as of this encounter Results * EKG 12 LEAD (09/10/2020 1:46 PM MAINTENANCE SERVICE DISPATCHER) Ventricular Rate BPM EXTERNAL EKG Atrial Rate BPM EXTERNAL EKG P-R Interval 146 ms EXTERNAL EKG QRS Duration 86 ms EXTERNAL EKG Q-T Duration 368 ms EXTERNAL EKG QTC CALCULATION 406 ms EXTERNAL EKG P [place] 73 degrees EXTERNAL EKG R [place] 42 degrees EXTERNAL EKG T [place] 35 degrees EXTERNAL EKG 09/10/2020 1:46 PM MAINTENANCE SERVICE DISPATCHER Impressions EXTERNAL EKG - 09/11/2020 12:52 PM MAINTENANCE SERVICE DISPATCHER Sinus rhythm Low QRS voltages in precordial leads Comparison Summary: No serial comparison made Summary: Borderline ECG Confirmed by Dejon Mcdonough [id number] on 09/11/2020 12:52:35 PM Narrative Procedure Note Sudheer Ashford MD - 09/11/2020 IMPRESSION: Sinus rhythm Low QRS voltages in precordial leads Comparison Summary: No serial comparison made Summary: Borderline ECG Confirmed by Dejon Mcdonough [id number] on 09/11/2020 12:52:35 PM us Gokul Underwood MD IMG ECG ORDERABLES Final Resu lt EXTERNAL EKG * HEMOGLOBIN & HEMATOCRIT (H&H) (09/10/2020 1:38 PM MAINTENANCE SERVICE DISPATCHER) HEMOGLOBIN (HGB) 13.5 13.0 - 16.5 g/dL 09/10/2020 2:16 PM MAINTENANCE SERVICE DISPATCHER [facility] HEMATOCRIT (HCT) 42.2 38.0 - 50.0 % 09/10/2020 2:16 PM MAINTENANCE SERVICE DISPATCHER [facility] Blood Venipuncture / Unknown 09/10/2020 1:38 PM MAINTENANCE SERVICE DISPATCHER 09/10/2020 2:12 PM MAINTENANCE SERVICE DISPATCHER us Gokul Underwood MD HEMATOLOGY ORDERABLES Final R esult [facility] #1 [facility] [address] documented in this encounter Visit Diagnoses Diagnosis Pre-op testing- Primary Preoperative examination, unspecified Pre-op testing Preoperative examination, unspecified documented in this encounter Care Teams Protective Signal Operator Relationship Specialty Start Date End Date Jaz Beckham MD PCP - General Family Medicine 01/05/17 11/14/21 Provider, None [place] PCP - General 11/15/21 11/27/21 Cezar Worthington MD #2 [facility] [address] [place] [address] PCP - General Family Medicine 11/28/21 09/09/23 Lamont Cerda MD #2 [facility] [address] [place] [address] PCP - General Family Medicine 09/10/23 Chris Wong MD Consulting Physician Pulmonary Disease 11/20/22 4 Chris Wong MD #2 [place] [address] Consulting Physician Pulmonary Disease 11/15/21 Abigail Hernandez APRN, RELAY RECORD CLERK #2 [facility] [address] [place] [address] Nurse Practitioner Cardiology 08/22/23 Karlie Cloud APRN, RELAY RECORD CLERK #2 [facility] [address] [place] [address] Nurse Practitioner Advanced Practice Nurse 11/20/22 documented as of this encounter
--- OUTSIDE RECORDS SUMMARY | 2024-10-06 14:35 | XMS_ITS | Encounter Summary ---
Author Organization [facility] Address [address] [place] [address] Phone Care Team Providers Care Film Vault Supervisor Name Role Phone Chris Wong MD Unavailable Jaz Beckham MD Primary Care Provider Unav ailable Provider, None Primary Care Provider Unavailcourtney e Chris Wong MD Unavailable Cezar Worthington MD Primary Care Provider [phone] Abigail Hernandez HORSE BREAKER, TRAILHEAD CONSTRUCTION WORKER Unavailable + [phone] Lamont Cerda MD Primary Care Provider [phone] Karlie Cloud HORSE BREAKER, TRAILHEAD CONSTRUCTION WORKER Unavailable [phone] Reason for Visit * Reason Comments Medication Refill Encounter Details Date Type Department Care Team (Late st Contact Info) Description 03/03/2020 Refill [facility] PULMONOLOGY #1 [place] [address] Chris Wong MD #2 [place] [address] Medication Refill Social History Tobacco Use Types Packs/Day Years Used Date Smoking Tobacco: Former Smokeless Tobacco: Never Alcohol Use Standard Drinks/Week [...] 9:00 AM CDT Office Visit [facility] - Cardiology - [place] #2 [place] [address] Abigail Hernandez, HORSE BREAKER, TRAILHEAD CONSTRUCTION WORKER #2 [facility] [address] [place] [address] 11/28/2024 10:30 AM CDT Office Visit [facility] - Family Medicine - [place] #2 [facility] [place] [address] Brian Colbert, HORSE BREAKER, TRAILHEAD CONSTRUCTION WORKER #2 [facility] [address] [place] [address] 03/16/2025 8:30 AM CDT Office Visit [facility] - Pulmonology & Sleep Medicine - [place] #2 [place] [address] Karlie Cloud, HORSE BREAKER, TRAILHEAD CONSTRUCTION WORKER #2 [facility] [address] [place] [address] documented as of this encounter Visit Diagnoses Not on filedocumented in this encounter Care Teams Film Vault Supervisor Relationship Specialty Start Date End Date Jaz Beckham MD PCP - General Family Medicine 01/05/17 11/14/21 Provider, None [place] PCP - General 11/15/21 11/27/21 Cezar Worthington MD #2 [facility] [address] [place] [address] PCP - General Family Medicine 11/28/21 09/09/23 Lamont Cerda MD #2 [facility] [address] [place] [address] PCP - General Family Medicine 09/10/23 Chris Wong MD Consulting Physician Pulmonary Disease 11/20/22 4 Chris Wong MD #[address] [place] [address] Consulting Physician Pulmonary Disease 11/15/21 Abigail Hernandez APRN, TRAILHEAD CONSTRUCTION WORKER #2 [facility] [address] [place] [address] Nurse Practitioner Cardiology 08/22/23 Karlie Cloud APRN, TRAILHEAD CONSTRUCTION WORKER #2 [facility] [address] [place] [address] Nurse Practitioner Advanced Practice Nurse 11/20/22 documented as of this encounter
--- OUTSIDE RECORDS SUMMARY | 2024-10-06 14:35 | XMS_ITS | Encounter Summary ---
Author Organization [facility] Address [address] [place] [address] Phone Care Team Providers Care Vp Ad Products And Planning Name Role Phone Chris Wong MD Unavailable Jaz Beckham MD Primary Care Provider Unav ailable Provider, None Primary Care Provider Unavailabl e Chris Wong MD Unavailable Cezar Worthington MD Primary Care Provider [phone] Abigail Hernandez APRN, BEHAVIORAL SCIENCES INSTRUCTOR Unavailable + [phone] Lamont Cerda MD Primary Care Provider [phone] Karlie Cloud APRN, BEHAVIORAL SCIENCES INSTRUCTOR Unavailable [phone] Encounter Details Date Type Department Care Team (Latest Contact Info) Description 08/30/2020 [facility] 1 [place] [id number] Josh Hernandez MD [address] [facility] [address] [place] [address] Pre-op testing (Primary Dx) Social History Tobacco [...] COVID-19? No / Unsure 08/30/2020 10:34 AM SNOW SHOVELER documented as of this encounter Plan of Treatment Upcoming Encounters Date Type Department Care Team (Late st Contact Info) Description 11/18/2024 9:00 AM CDT Office Visit [facility] Medical Group - Cardiology - [place] #2 [place] [address] Abigail Hernandez PROCUREMENT FORESTER, BEHAVIORAL SCIENCES INSTRUCTOR #2 [facility] [address] [place] [address] 11/28/2024 10:30 AM CDT Office Visit [facility] - Family Medicine - [place] #2 [place] [address] Brian Colbert, PROCUREMENT FORESTER, BEHAVIORAL SCIENCES INSTRUCTOR #2 [facility] [address] [place] [address] 03/16/2025 8:30 AM CDT Office Visit [facility] - Pulmonology & Sleep Medicine - [place] #2 [place] [address] Karlie Cloud PROCUREMENT FORESTER, BEHAVIORAL SCIENCES INSTRUCTOR #2 [facility] [address] [place] [address] documented as of this encounter Visit Diagnoses Diagnosis Pre-op testing- Primary Preoperative examination, unspecified documented in this encounter Care Teams Vp Ad Products And Planning Relationship Specialty Start Date End Date Jaz Beckham MD PCP - General Family Medicine 01/05/17 11/14/21 Provider, None [place] PCP - General 11/15/21 11/27/21 Cezar Worthington MD #2 [facility] [address] [place] [address] PCP - General Family Medicine 11/28/21 09/09/23 Lamont Cerda MD #[address] [facility] [address] [place] [address] PCP - General Family Medicine 09/10/23 Chris Wong MD Consulting Physician Pulmonary Disease 11/20/22 4 Chris Wong MD #[address] [place] [address] Consulting Physician Pulmonary Disease 11/15/21 Abigail Hernandez APRN, BEHAVIORAL SCIENCES INSTRUCTOR #2 [facility] [address] [place] [address] Nurse Practitioner Cardiology 08/22/23 Karlie Cloud APRN, BEHAVIORAL SCIENCES INSTRUCTOR #[address] [facility] [address] [place] [address] Nurse Practitioner Advanced Practice Nurse 11/20/22 documented as of this encounter
--- OUTSIDE RECORDS SUMMARY | 2024-10-06 14:35 | XMS_ITS | Clinical Summary ---
Author Organization [facility] Address [address] [place] [address] Care Team Providers Care Flight Communications Operator Name Role Phone Unavailable Primary Care Provider Unavailabl e Source Comments [facility],non-owned Affiliates and Associated Physician Practices is amultiple site organization consisting of ambulatory clinics and hospital sitesin [place], [place], [place] and [place]. This disclosure is being madepursuant to the Care Everywhere program and may not contain all information available regarding this patient. Last updated 18.[facility] [employer] Social History Tobacco Use Types Packs/Day Years Used Date Smoking Tobacco: Never Assessed Sex and Gender Information Value Date Recorded Sex Assigned at Not on file Gender Identity Not on file Sexual Orientation Not on file Plan of Treatment Health Maintenance Due Date Last Done Comments COLOGUARD (AGES 45-75) - COL ON CA SCREENING 1967 COLON MONITORING 1967 COLONOSCOPY - COLON CA SCREENING 1967 CT COLONOGRAPHY - COLON CA SCREENING 1967 Colorectal Cancer Screening 1967 FIT - COLON CA SCREENING 1967 FLEX SIG - COLON CA SCREENING 1967 LIPID TESTING 1967 HIV SCREENING 1982 HEPATITIS C SCREENING 07/14/1985 DTAP/TDAP/TD VACCINES (1 - Tdap) 1986 HEPATITIS B VACCINE (1 of 3 - 19+ 3-dose series) 1986 PNEUMOCOCCAL VACCINE 50+ (1 of 1 - PCV) 2017 ZOSTER VACCINE (1 of 2) 2017 COVID-19 VACCINE ( - 2023-2 5 season) 2024 INFLUENZA VACCINE (#1) 2024 DEPRESSION SCREENING 08/27/2024 HIB VACCINE Aged Out No longer eligi ble based on patient's age to complete this topic HPV VACCINE Aged Out No longer eligi ble based on patient's age to complete this topic MENINGOCOCCAL (Group B) VACCINE Aged Out No longer eligible based on patient's age to complete this topic MENINGOCOCCAL VACCINE Aged Out No ivanna randy eligible based on patient's age to complete this topic PNEUMOCOCCAL VACCINE Aged Out No long er eligible based on patient's age to complete this topic
--- OUTSIDE RECORDS SUMMARY | 2024-10-06 14:35 | XMS_ITS | Patient Health Summary ---
Author Organization [facility] Address [address] [place] [address] Care Team Providers Care Network Engineer Administrator Name Role Phone Unavailable Primary Care Provider Unavailabl e Note from [facility],non-owned Affiliates and Associated Physician Practices is amultiple site organization consisting of ambulatory clinics and hospital sitesin [place], [place] and [place]. This disclosure is being madepursuant to the Care Everywhere program and may not contain all information available regarding this patient. Last updated 18.[facility] Social History Tobacco Use Types Packs/Day Years Used Date Smoking Tobacco: Never Assessed Sex and Gender Information Value Date Recorded Sex Assigned at Not on file Gender Identity Not on file Sexual Orientation Not on file Procedures * GROSS + MICRO EXAM(Performed 05/11/1999) Results * GROSS + MICRO EXAM (05/11/1999 9:05 AM CDT) Result CASE NUMBER [id number] Comment: ORDERING PHYSICIAN LUIS BARR SPECIMEN TYPE Tumor-Lt. Maxilla Date of Surgery 05/11/1999 0857 SPECIMEN SOURCE Cystic tumor, left maxilla *Pre Op Dx Tumor (L) sinus (maxilla) GROSS DESCRIPTION Received in fixative and labeled Lazaro Nino cystic tumor, left maxilla, there are multiple fragments of soft to rubbery, brown to storm tissue and blood clot, measuring in aggregate 1.6 x 1.0 x 0.3 cm. Also included among the tissue fragments are occasional small portions of very firm tissue, which may represent either cartilage or bone. The tissues are entirely submitted in cassette A1. Grossed by CHRIS BEASLEY M.D. *MICROSCOPIC EXAM One slide from cassette A1 shows multiple levels of multiple fragments of frequently papillary connective tissue, lined on both sides and the tip with a ciliated, pseudostratified columnar respiratory epithelium, producing a histologic picture characteristic of a nasal inflammatory polyp. Also included are additional fragments of benign respiratory mucosa and submucosa with focal, mild chronic inflammation and underlying small to prominent fragments of undecalcified bone. The underlying stroma also shows focal hyalinization and scarring. Finally, there are multiple prominent portions of blood clot. There is no evidence of malignancy. Read by CHRIS BEASLEY M.D. 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 CODE 4 CPT Level III 28620 RELEASED BY CHRIS Moreno MISCELLANEOUS SAMPLES / Unknown 05/11/1999 9:05 AM CDT 05/11/1999 10:17 AM CDT Historical Provider LAB - PATHOLOGY/C YTOLOGY ORDERABLES
--- OUTSIDE RECORDS SUMMARY | 2024-10-06 14:35 | XMS_ITS | Encounter Summary ---
Author Organization [facility] Address [address] [place] [address] Phone Care Team Providers Care Safety Net Maker Name Role Phone Chris Wong MD Unavailable Chris Wong MD Unavailable Cezar Worthington MD Primary Care Provider [phone] Abigail Hernandez APRN, [employer] Unavailable + [phone] Lamont Cerda MD Primary Care Provider [phone] Karlie Cloud INTERNAL MEDICINE PHYSICIAN ASSISTANT, [employer] Unavailable [phone] Reason for Visit * Reason Onset Date Comments PATIENT TRANSFER 08/28/2023 Encounter Details Date Type Department Care Team (Late st Contact Info) Description 08/28/2023 Telephone [facility] - Family [facility] #2 [place] [address] Cezar Worthington MD #[address] [address] PATIENT TRANSFER Social History Tobacco Use Types Packs/Day Years Used Date Smoking Tobacco: Former Cigarettes Q uit: 03/06/2004 Smokeless Tobacco: Never Alcohol Use Standard Drinks/Week Comments No 0 (1 standard drink = 0.6 oz pur e alcohol) PHQ-2 Answer Date Recorded Total Score - Questions 1-9 8 10/0 11/2022 Sexually Active Control Partners Comments Yes Female Sex and Gender Information Value Date Recorded Sex Assigned at Not on file Legal Sex Male 12:35 AM CDT Gender Identity Not on file Sexual Orientation Not on file documented as of this encounter Miscellaneous Notes * Telephone Encounter - Alyssa Richter - 08/28/2023 11:03 AM CST Patient came in and stated that he would like to transfer from Dr. Worthington to Dr. Cerda. Does accept the transfer? Call and set patient up a transfer appointment if OK'd by Prashant. CULTURE INSPECTOR documented in this encounter Plan of Treatment Upcoming Encounters Date Type Department Care Team (Late st Contact Info) Description 11/18/2024 9:00 AM CDT Office Visit [facility] - Cardiology - [place] #2 [place] [address] Abigail Hernandez, INTERNAL MEDICINE PHYSICIAN ASSISTANT, [employer] #2 [facility] [address] [place] [address] 11/28/2024 10:30 AM CDT Office Visit [facility] - Family Medicine - [place] #2 [place] [address] Brian Colbert, INTERNAL MEDICINE PHYSICIAN ASSISTANT, [employer] #2 [facility] [address] [place] [address] 03/16/2025 8:30 AM CDT [facility] - [place] #2 [place] [address] Karlie Cloud INTERNAL MEDICINE PHYSICIAN ASSISTANT, [employer] #2 [facility] [address] [place] [address] documented as of this encounter Visit Diagnoses Not on filedocumented in this encounter Additional Health Concerns Assessment Noted Time PHQ-9 Depression Total Score: 8 05/30/20 10:39 AM CDT documented as of this encounter Care Teams Safety Net Maker Relationship Specialty Start Date End Date Cezar Worthington MD #2 [address] [facility] [address] [place] [address] PCP - General Family Medicine 11/28/21 09/09/23 Lamont Cerda MD #2 [facility] [address] [place] [address] PCP - General Family Medicine 09/10/23 Chris Wong MD Consulting Physician Pulmonary Disease 11/20/22 4 Chris Wong MD #2 [place] [address] Consulting Physician Pulmonary Disease 11/15/21 Abigail Hernandez APRN, [employer] #2 [facility] [address] [place] [address] Nurse Practitioner Cardiology 08/22/23 Karlie Cloud APRN, [employer] #2 [facility] [address] [place] [address] Nurse Practitioner Advanced Practice Nurse 11/20/22 documented as of this encounter
--- OUTSIDE RECORDS SUMMARY | 2024-10-06 14:35 | XMS_ITS | Referral Summary ---
Author Organization [facility] Address [address] [place] [address] Care Team Providers Care Manager Camp Name Role Phone Unavailable Primary Care Provider Unavailabl e Source Comments [facility],non-owned Affiliates and Associated Physician Practices is amultiple site organization consisting of ambulatory clinics and hospital sitesin [place], [place], [place] and [place]. This disclosure is being madepursuant to the Care Everywhere program and may not contain all information available regarding this patient. Last updated 18.[facility] Social History Tobacco Use Types Packs/Day Years Used Date Smoking Tobacco: Never Assessed Sex and Gender Information Value Date Recorded Sex Assigned at Not on file Gender Identity Not on file Sexual Orientation Not on file Plan of Treatment Not on file
[2024-10-06 14:43] VITALS: BP 105/65; PULSE 114; RESP 16; TEMP 35.5; O2SAT 99
--- NOTE | 2024-10-06 15:03 | ED_ITS ---
HPI - URI/Sore Throat General Chief Complaint: Upper Respiratory Infection Stated Complaint: nose and head pressure Time Seen by Provider: 10/06/24 15:03 Source: patient Mode of arrival: ambulatory Limitations: no limitations History of Present Illness HPI Narrative: 59 y/o male presented for c/o nasal congestion x2 weeks with a history of chronic nasal congestion. Scheduled with ENT this week and is scheduled for a shot to start this week for the congestion. also using multiple nasal sprays for symptoms. Denies any other concerns today. Related Data Home Medications ?Medication ?Instructions ?Recorded ?Confirmed ?Last Taken ?Type albuterol sulfate 90 mcg/actuation inhalation 10/06/24 Unknown History aerosol inhaler budesonide 160 mcg-glycopyr 9 inh inhalation 10/06/24 Unknown History mcg-formot 4.8 mcg/actuation HFA inhaler (Breztri Aerosphere) fluticasone propionate 50 intranasal 10/06/24 Unknown History mcg/actuation nasal spray,suspension gabapentin 100 mg capsule mg 10/06/24 Unknown History montelukast 10 mg tablet mg 10/06/24 Unknown History pantoprazole 40 mg tablet,delayed mg PO 10/06/24 Unknown History release Allergies Allergy/AdvReac Type Severity Reaction Status Date / Time Contrast Media AdvReac Intermediate VOMITING & Uncoded 05/21/19 10:08 DIARRHEA Review of Systems Review of Systems: per HPI All systems reviewed & are unremarkable except as noted in HPI and below PMFSH Comments At time of signature, I have reviewed and agree with nursing past medical, surgical, social and family history unless otherwise noted. Please see nursing chart for further information. There is no relevant family history pertinent to the presenting complaint Exam Narrative: GENERAL: Well-appearing HEAD: Normocephalic, atraumatic. EYES: EOMI. No redness or drainage. Conjunctivae normal. ENT: Mucous membranes pink and moist. nasal congestion. TMs normal bilaterally. SKIN: Warm, dry, no rash. Capillary refill normal. Normal skin turgor. NEURO: No focal deficits. Alert and oriented x3. Gait steady. PSYCH: Appears anxious Course Course Emergency Course: Patient is aware of diagnosis, understands and agrees to treatment plan. Anticipatory guidance given. Patient agrees to follow-up as directed and is aware of reasons to seek care at the emergency department. Portions of this record may have been created with voice recognition software Level of Care: [facility] Visit Vital Signs Vital signs: Vital Signs Temperature 96 F L 10/06/24 14:43 Pulse Rate 114 H 10/06/24 14:43 Respiratory Rate 16 10/06/24 14:43 Blood Pressure 105/65 10/06/24 14:43 Pulse Oximetry 99 10/06/24 14:43 Oxygen Delivery Room Air 10/06/24 14:43 Temperature 96 F L 10/06/24 14:43 Pulse Rate 114 H 10/06/24 14:43 Respiratory Rate 16 10/06/24 14:43 Blood Pressure 105/65 10/06/24 14:43 Pulse Oximetry 99 10/06/24 14:43 Oxygen Delivery Room Air 10/06/24 14:43 MDM - URI/Sore Throat MDM Narrative Medical decision making narrative: Pt says nasal sprays cause his face to become numb. Scheduled with ENT this week and is scheduled to start a shot this week as well. Pt with chronic nasal congestion. During the exam, pt was advised Rx abx since he says he has been congested x2 weeks. However pt became angry and cussing; says abx cause heartburn and he cannot take them. He stated I will just go home and deal with it on my own, if I , I . Pt left without dc papers. Discharge Plan Discharge Clinical Impression: Sinusitis Patient Disposition: Elopement After Seen by Prov Condition: Stable Patient Language: Kazakh Prescriptions: No Action pantoprazole 40 mg tablet,delayed release (DR/EC) PO montelukast 10 mg tablet gabapentin 100 mg capsule albuterol sulfate 90 mcg/actuation HFA aerosol inhaler INHALATION fluticasone propionate 50 mcg/actuation spray,suspension INTRANASAL Breztri Aerosphere 160-9-4.8 mcg/actuation HFA aerosol inhaler INHALATION Follow-up/Referrals: PHYSICIAN NOT ON STAFF,NONSTAFF [Primary Care Provider] - Time of Disposition: 15:10
== END 2024-10-06 15:18 | disposition left against medical advice (07) ==
PROVIDERS: Emergency Provider Nurse Practitioner Family
DX: J32.9 Chronic sinusitis, unspecified (principal)
CPT/HCPCS: 99202; G0463

== ENCOUNTER 2024-10-14 10:30 | Outpatient (CLI) | payer OTHER, SELFPAY ==
--- NOTE | ~2024-10-14 | CT_ITS ---
EXAMINATION: CT sinus wo con DATE: 10/14/2024 10:51 INDICATION: Chronic sinusitis for 6 months TECHNIQUE: Computed tomography (CT) of the paranasal sinuses was performed without intravenous contra st. The dose-length product was 288.76 mGy-cm. Automated exposure control and iterative reconstructio n technique were employed. COMPARISON: None FINDINGS: There is mucosal thickening of the frontal, ethmoid, sphenoid and maxillary sinuses. There is leftward nasal septal deviation. There is occlusion of the ostiomeatal units by soft tissues. Mast oids are poorly pneumatized. IMPRESSION: 1. Moderate pansinusitis. Reviewed, dictated and finalized at location B. [employer] IMPRESSION: 1. Moderate pansinusitis.
--- OUTSIDE RECORDS SUMMARY | 2024-10-14 10:50 | XMS_ITS | Encounter Summary ---
Author Organization [facility] Address [address] [place] [address] Phone Care Team Providers Care Ed Transporter Name Role Phone Chris Wong MD Unavailable Chris Wong MD Unavailable Cezar Worthington MD Primary Care Provider [phone] Abigail Hernandez APRN, HYDRAMATIC SPECIALIST Unavailable + [phone] Lamont Cerda MD Primary Care Provider [phone] Karlie Cloud AWNING HANGER, HYDRAMATIC SPECIALIST Unavailable [phone] Reason for Visit * Reason Onset Date Comments PATIENT TRANSFER 08/28/2023 Encounter Details Date Type Department Care Team (Late st Contact Info) Description 08/28/2023 Telephone [facility] #2 [place] [address] Cezar Worthington MD #[address] [address] PATIENT TRANSFER Social History Tobacco Use Types [...] a transfer appointment if OK'd by Prashant. D PLANNER documented in this encounter Plan of Treatment Upcoming Encounters Date Type Department Care Team (Latest Contact Info) Description 10/18/2024 1:30 PM BRAND PLANNER [facility] [address] [place] [address] Josh Hernandez MD [address] [facility] [facility] [address] [address] [address] [place] [address] Discharge Disposition: Discharged to home or Selfcare 10/21/2024 9:00 AM BRAND PLANNER Ancillary [facility] [address] [place] [address] Lamont Cerda MD #2 [facility] [address] [place] [address] Discharge Disposition: Discharged to home or Selfcare 11/18/2024 9:00 AM CDT Office Visit [facility] Medical Group - Cardiology - [place] #2 [place] [address] Abigail Hernandez APRN, HYDRAMATIC SPECIALIST #2 [facility] [address] [place] [address] 11/28/2024 10:30 AM CDT Office Visit [facility] - Family Medicine - [place] #2 [place] [address] Brian Colbert, AWNING HANGER, HYDRAMATIC SPECIALIST #2 [facility] [address] [place] [address] 03/16/2025 8:30 AM CDT Office Visit [facility] - Pulmonology & Sleep Medicine - [place] #2 [place] [address] Karlie Cloud AWNING HANGER, HYDRAMATIC SPECIALIST #2 [facility] [address] [place] [address] documented as of this encounter Visit Diagnoses Not on filedocumented in this encounter Additional Health Concerns Assessment Noted Time PHQ-9 Depression Total Score: 8 05/30/20 23 10:39 AM CDT documented as of this encounter Care Teams Ed Transporter Relationship Specialty Start Date End Date Cezar Worthington MD #[address] [address] PCP - General Family Medicine 11/28/21 09/09/23 Lamont Cerda MD #[address] [address] PCP - General Family Medicine 09/10/23 Chris Wong MD Consulting Physician Pulmonary Disease 11/20/22 4 Chris Wong MD #2 [place] [address] Consulting Physician Pulmonary Disease 11/15/21 Abigail Hernandez APRN, HYDRAMATIC SPECIALIST #2 [facility] [place] [address] Nurse Practitioner Cardiology 08/22/23 Karlie Cloud APRN, GIRMA #[address] [facility] [address] [place] [address] Nurse Practitioner Advanced Practice Nurse 11/20/22 documented as of this encounter
--- OUTSIDE RECORDS SUMMARY | 2024-10-14 10:50 | XMS_ITS | Encounter Summary ---
Author Organization [facility] Address [address] [place] [address] Phone Care Team Providers Care Tube Room Supervisor Name Role Phone Chris Wong MD Unavailable Jaz Beckham MD Primary Care Provider Unav ailable Provider, None Primary Care Provider Unavailcourtney e Chris Wong MD Unavailable Cezar Worthington MD Primary Care Provider [phone] Abigail Hernandez FIRST AID TRAINER, ROOFER METAL Unavailable +- [phone] Lamont Cerda MD Primary Care Provider [phone] Karlie Cloud FIRST AID TRAINER, ROOFER METAL Unavailable [phone] Reason for Visit * Reason Comments Medication Refill Encounter Details Date Type Department Care Team (Late st Contact Info) Description 03/03/[address] [facility] PULMONOLOGY #1 [place] [address] Chris Wong MD #2 [place] [address] Medication Refill Social History Tobacco [...] (Latest Contact Info) Description 10/18/2024 1:30 PM BELT REPA[facility]ER [facility] [address] [place] [address] Josh Hernandez MD [address] [facility] [address] [place], [place] [address] Discharge Disposition: Discharged to home or Selfcare 10/21/2024 9:00 AM BELT REPAIRER Ancillary Procedure [facility] [address] [place] [address] Lamont Cerda MD #[address] [address] Discharge Disposition: Discharged to home or Selfcare 11/18/2024 9:00 AM CDT Office Visit [facility] - [place] #2 [place] [address] Abigail Hernandez APRN, ROOFER METAL #2 [facility] [address] [place] [address] 11/28/2024 10:30 AM CDT [facility] - [place] #2 [place] [address] Brian Colbert, FIRST AID TRAINER, ROOFER METAL #[address] [address] 03/16/2025 8:30 AM CDT [facility] - [place] #2 [place] [address] KnabeKarlie APRN, ROOFER METAL #2 [facility] [address] [place] [address] documented as of this encounter Visit Diagnoses Not on filedocumented in this encounter Care Teams Tube Room Supervisor Relationship Specialty Start Date End Date Jaz Beckham MD PCP - General Family Medicine 01/05/17 11/14/21 Provider, None [place] PCP - General 11/15/21 11/27/21 Cezar Worthington MD #2 [facility] [address] [place] [address] PCP - General Family Medicine 11/28/21 09/09/23 Lamont Cerda MD #2 [facility] [address] [place] [address] PCP - General Family Medicine 09/10/23 Chris Wong MD Consulting Physician Pulmonary Disease 11/20/22 4 Chris Wong MD #2 [place] [address] Consulting Physician Pulmonary Disease 11/15/21 Abigail Hernandez APRN, ROOFER METAL #2 [facility] [address] [place] [address] Nurse Practitioner Cardiology 08/22/23 Karlie Cloud APRN, ROOFER METAL #2 [facility] [address] [place] [address] Nurse Practitioner Advanced Practice Nurse 11/20/22 documented as of this encounter
--- OUTSIDE RECORDS SUMMARY | 2024-10-14 10:50 | XMS_ITS | Encounter Summary ---
Author Organization [facility] Address [address] [place] [address] Phone Care Team Providers Care International Manager Name Role Phone Chris Wong MD Unavailable Jaz Beckham MD Primary Care Provider Unav ailable Provider, None Primary Care Provider Unavailabl e Chris Wong MD Unavailable Cezar Worthington MD Primary Care Provider [phone] Abigail Hernandez APRN, VOCATIONAL INSTRUCTOR Unavailable + [phone] Lamont Cerda MD Primary Care Provider [phone] Karlie Cloud APRN, VOCATIONAL INSTRUCTOR Unavailable [phone] Encounter Details Date Type Department Care Team (Latest Contact Info) Description 08/30/2020 [facility] 1 [place] [id number] Josh Hernandez MD [address] [facility] [address] [place] [address] Pre-op testing (Primary Dx) Social [...] COVID-19? No / Unsure 08/30/2020 10:34 AM INTERMEDIATE FRAME TENDER documented as of this encounter Plan of Treatment Upcoming Encounters Date Type Department Care Team (Latest Contact Info) Description 10/18/2024 1:30 PM INTERMEDIATE FRAME TENDER [facility]ment [facility] [address] [place] [address] Josh Hernandez MD [address] [facility] [address] [place] [address] Discharge Disposition: Discharged to home or Selfcare 10/21/2024 9:00 AM INTERMEDIATE FRAME TENDER [facility] [address] [place] [address] Lamont Cerda MD #[address] [address] Discharge Disposition: Discharged to home or Selfcare 11/18/2024 9:00 AM CDT Office Visit [facility] - [facility] #2 [place] [address] Abigail Hernandez APRN, VOCATIONAL INSTRUCTOR #2 [facility] [address] [place] [address] 11/28/2024 10:30 AM CDT Office Visit [facility] - Family Medicine - [place] #2 [place] [address] Brian Colbert, BONNIE, VOCATIONAL INSTRUCTOR #2 [facility] [address] [place] [address] 03/16/2025 8:30 AM CDT Office Visit [facility] - Pulmonology & Sleep Medicine - [place] #2 [place] [address] Karlie Cloud APRN, VOCATIONAL INSTRUCTOR #2 [facility] [address] [place] [address] documented as of this encounter Visit Diagnoses Diagnosis Pre-op testing- Primary Preoperative examination, unspecified documented in this encounter Care Teams International Manager Relationship Specialty Start Date End Date Jaz Beckham MD PCP - General Family Medicine 01/05/17 11/14/21 Provider, None [place] PCP - General 11/15/21 11/27/21 Cezar Worthington MD #2 [facility] [address] [place] [address] PCP - General Family Medicine 11/28/21 09/09/23 Lamont Cerda MD #2 [facility] [address] [place] [address] PCP - General Family Medicine 09/10/23 Chris Wong MD Consulting Physician Pulmonary Disease 11/20/22 4 Chris Wong MD #2 [place] [address] Consulting Physician Pulmonary Disease 11/15/21 Abigail Hernandez APRN, VOCATIONAL INSTRUCTOR #2 [facility] [address] [place] [address] Nurse Practitioner Cardiology 08/22/23 Karlie Cloud APRN, VOCATIONAL INSTRUCTOR #2 [place] [address] Nurse Practitioner Advanced Practice Nurse 11/20/22 documented as of this encounter
--- OUTSIDE RECORDS SUMMARY | 2024-10-14 10:50 | XMS_ITS | Clinical Summary ---
Author Organization [facility] Address [address] [place] [address] Care Team Providers Care Furniture Duster Name Role Phone Unavailable Primary Care Provider Unavailabl e Source Comments [facility] [employer]),non-owned Affiliates and Associated Physician Practices is amultiple site organization consisting of ambulatory clinics and hospital sitesin [place], [place], [place]. This disclosure is being madepursuant to the Care Everywhere program and may not contain all information available regarding this patient. Last updated 18.[facility] [employer] Social History Tobacco Use Types Packs/Day Years [...]
--- OUTSIDE RECORDS SUMMARY | 2024-10-14 10:50 | XMS_ITS | Referral Summary ---
Author Organization [facility] Address [address] [place] [address] Care Team Providers Care Group Therapist Name Role Phone Lamont Cerda MD Primary Care Provider [phone] Allergies Active Allergy Reactions Criticality Noted Date [...] on file Legal Sex Male 3:15 PM INSPECTOR EYEGLASS Gender Identity Not on file Sexual Orientation [...] on file Medical Devices Implanted Type Area Traffic Sign Erection Supervisor Device Identifier Shelf Expiration Date Model / Serial / Lot Markkit Edgar 192-123 Polaris Ultra Nautilus 5fr 2.1fr 26cm 2 Durometer Taper Tip Low Latex Free - Sn/A - [id number] Implanted:Qty: 1 on 12/13/2018 by Adam Dee MD at [facility] Stent Right: Ureter [employer] Edgar 09/01/2021 192-123 / N/A / [id number] Insurance Advance Directives For more information, please contact: [phone] * Full Code (Latest Code Status on File) Date Activated Date Inactivated Comments 01/09/2019 9:06 AM 01/09/2019 2:36 PM * Full Code Date Activated Date Inactivated Comments 12/13/2018 5:46 AM 12/13/2018 7:44 PM Care Teams Group Therapist Relationship Specialty Start Date End Date Lamont Cerda MD 2 [place] [address] PCP - General Family Medicine 09/26/24
--- OUTSIDE RECORDS SUMMARY | 2024-10-14 10:50 | XMS_ITS | Encounter Summary ---
Author Organization [facility] Address [address] [place] [address] Phone Care Team Providers Care Hand Presser Name Role Phone Chris Wong MD Unavailable Abigail Hernandez APRN, FABRICATION SPECIALIST Unavailable [phone]- [phone] Lamont Cerda MD Primary Care Provider [phone] Karlie Cloud APRN, FABRICATION SPECIALIST Unavailable [phone] Encounter Details Date Type Department Care Team (Late st Contact Info) Description 09/16/2024 Results Follow-Up [facility] - Pulmonology & Sleep Medicine [facility] #2 [place] [address] Karlie Cloud APRN, FABRICATION SPECIALIST #[address] [address] Social History Tobacco Use Types Packs/Day Years Used Date Smoking Tobacco: Former Cigarettes Q uit: 03/06/2004 Smokeless Tobacco: Never Alcohol Use Standard Drinks/Week Comments No 0 (1 standard drink = 0.6 oz pur e alcohol) [facility] Utilities Answer Date Recorded In the past [...] declined 11/13/2023 How often do you attend judaism or confucianism serv ices? Patient declined 11/13/2023 Do you belong to any clubs o r organizations such as judaism groups, unions, fraternal or athletic groups, or [...] Score - Questions 1-9 8 10/0 11/2022 [facility] - Occupational Stress [...] place to sleep or slept in a fpc (including now)? Patient declined 11/13/2023 Sexually Active Control Partners Comments Yes Female Sex and Gender Information Value Date Recorded Sex Assigned at Not on file Legal Sex Male 12:35 AM CDT Gender Identity Not on file Sexual Orientation Not on file documented as of this encounter Plan of Treatment Upcoming Encounters Date Type Department Care Team (Latest Contact Info) Description 10/18/2024 1:30 PM PHYSICAL THERAPY ASST [facility] [address] [place] [address] Josh Hernandez MD [address] [facility] [address] [place] [address] Discharge Disposition: Discharged to home or Selfcare 10/21/2024 9:00 AM PHYSICAL THERAPY ASST [facility]illary [facility] [address] [place] [address] Lamont Cerda MD #[address] [address] Discharge Disposition: Discharged to home or Selfcare 11/18/2024 9:00 AM CDT [facility] - [place] #2 [place] [address] Abigail Hernandez APRN, FABRICATION SPECIALIST #2 [facility] [address] [place] [address] 11/28/2024 10:30 AM CDT Office Visit [facility] Medical Group - Family Medicine - [place] #2 [facility] [place] [address] Brian Colbert APRN, FABRICATION SPECIALIST #2 [facility] [address] [place] [address] 03/16/2025 8:30 AM CDT [facility] - [place] #2 [facility] [place] [address] Karlie Cloud APRN, FABRICATION SPECIALIST #2 [facility] [address] [place] [address] documented as of this encounter Visit Diagnoses Not on filedocumented in this encounter Additional Health Concerns Assessment Noted Time PHQ-9 Depression Total Score: 8 05/30/20 23 10:39 AM CDT documented as of this encounter Care Teams Hand Presser Relationship Specialty Start Date End Date Lamont Cerda MD #2 [facility] [address] [place] [address] PCP - General Family Medicine 09/10/23 Chris Wong MD #2 [facility] [place] [address] Consulting Physician Pulmonary Disease 11/15/21 Abigail Hernandez APRN, FABRICATION SPECIALIST #2 [facility] [address] [place] [address] Nurse Practitioner Cardiology 08/22/23 Karlie Cloud APRN, FABRICATION SPECIALIST #[address] [place] [address] Nurse Practitioner Advanced Practice Nurse 11/20/22 documented as of this encounter
--- OUTSIDE RECORDS SUMMARY | 2024-10-14 10:50 | XMS_ITS | Encounter Summary ---
Author Organization [facility] Address [address] [place] [address] Phone Care Team Providers Care Statistical Secretary Name Role Phone Chris Wong MD Unavailable Jaz Beckham MD Primary Care Provider Unav ailable Provider, None Primary Care Provider Unavailcourtney e Chris Wong MD Unavailable Cezar Worthington MD Primary Care Provider [phone] Abigail Hernandez VP STRATEGY, PAINTER SHIPYARD Unavailable [phone]- [phone] Lamont Cerda MD Primary Care Provider [phone] Karlie Cloud APRN, PAINTER SHIPYARD Unavailable [phone] Reason for Visit * Reason Comments Medication Refill Encounter Details Date Type Department Care Team (Late st Contact Info) Description 09/23/2020 Refill [facility] PHYSICIAN GROUP PULMONOLOGY #1 [place] [address] Chris Wong MD #2 [place] [address] Medication Refill Social History Tobacco [...] COVID-19? No / Unsure 09/13/2020 8:19 AM SUPPLIER RELATIONSHIP DIRECTOR documented as of this encounter Plan of Treatment Upcoming Encounters Date Type Department Care Team (Latest Contact Info) Description 10/18/2024 1:30 PM SUPPLIER RELATIONSHIP DIRECTOR [facility] [address] [place] [address] Josh Hernandez MD [address] [facility] [address] [place] [address] Discharge Disposition: Discharged to home or Selfcare 10/21/2024 9:00 AM SUPPLIER RELATIONSHIP DIRECTOR [facility] [address] [place] [address] Lamont Cerda MD #[address] [address] Discharge Disposition: Discharged to home or Selfcare 11/18/2024 9:00 AM CDT Office Visit [facility] Medical Group - Cardiology - [place] #2 [place] [address] Abigail Hernandez APRN, PAINTER SHIPYARD #2 [facility] [address] [place] [address] 11/28/2024 10:30 AM CDT Office Visit [facility] Medical Group - Family Medicine - [place] #2 [place] [address] Brian Colbert APRN, PAINTER SHIPYARD #2 [facility] [address] [place] [address] 03/16/2025 8:30 AM CDT Office Visit [facility] - Pulmonology & Sleep Medicine [facility] #2 [place] [address] Karlie Cloud APRN, PAINTER SHIPYARD #2 [facility] [address] [place] [address] documented as of this encounter Visit Diagnoses Not on filedocumented in this encounter Care Teams Statistical Secretary Relationship Specialty Start Date End Date Jaz Beckham MD PCP - General Family Medicine 01/05/17 11/14/21 Provider, None [place] PCP - General 11/15/21 11/27/21 Cezar Worthington MD #2 [facility] [address] [place] [address] PCP - General Family Medicine 11/28/21 09/09/23 Lamont Cerda MD #2 [facility] [address] [place] [address] PCP - General Family Medicine 09/10/23 Chris Wong MD Consulting Physician Pulmonary Disease 11/20/22 4 Chris Wong MD #2 [place] [address] Consulting Physician Pulmonary Disease 11/15/21 Abigail Hernandez APRN, PAINTER SHIPYARD #2 [facility] [address] [place] [address] Nurse Practitioner Cardiology 08/22/23 Karlie Cloud APRN, PAINTER SHIPYARD #2 [place] [address] Nurse Practitioner Advanced Practice Nurse 11/20/22 documented as of this encounter
--- OUTSIDE RECORDS SUMMARY | 2024-10-14 10:50 | XMS_ITS | Encounter Summary ---
Author Organization [facility] Address [address] [place] [address] Phone Care Team Providers Care Smoke And Flame Specialist Name Role Phone Chris Wong MD Unavailable Abigail Hernandez APRN, SPACE SYSTEMS OPERATIONS MANAGER Unavailable + [phone] Lamont Cerda MD Primary Care Provider [phone] Karlie Cloud APRN, SPACE SYSTEMS OPERATIONS MANAGER Unavailable [phone] Reason for Visit * Reason Comments Medication Refill Encounter Details Date Type Department Care Team (Late st Contact Info) Description 11/21/2023 Refill [facility] Medical Group - Family Medicine [facility] #2 [place] [address] Lamont Cerda MD #[address] [address] Medication Refill Social History Tobacco Use Types Packs/Day Years Used Date Smoking Tobacco: Former Cigarettes Q uit: 03/06/2004 Smokeless Tobacco: Never Alcohol Use Standard Drinks/Week Comments No 0 (1 standard drink = 0.6 oz pur e alcohol) [facility] Utilities Answer Date Recorded In the past [...] declined 11/13/2023 How often do you attend advent or religion serv ices? Patient declined 11/13/2023 Do you belong to any clubs o r organizations such as advent groups, unions, fraternal or athletic groups, or [...] Score - Questions 1-9 8 10/0 11/2022 [facility] - Occupational Stress Questionnaire Answer Date [...] place to sleep or slept in a care home (including now)? Patient declined 11/13/2023 Sexually [...] 11/13/23 Office Visit Brian Colbert APRN, [facility] 10/17/23 Telemedicine Lamont Cerda MD [facility] 09/13/23 Office Visit Lamont Cerda MD [facility] 05/30/23 Office Visit Cezar Worthington MD [facility] 11/29/22 Office Visit [facility] Showing recent visits within past 365 days and meeting all other requirements Future Appointments Date Type Provider Dept 12/18/23 Appointment Lamont Cerda MD [facility] 02/04/24 Appointment Brian Colbert APRN, CNP [facility] Showing future appointments within next 90 days and meeting all other requirements documented in this encounter Plan of Treatment Upcoming Encounters Date Type Department Care Team (Latest Contact Info) Description 10/18/2024 1:30 PM AIR VALVE REPAIRER Appointment [facility] CT [address] [place] [address] Josh Hernandez MD [address] [facility] [address] [place] [address] Discharge Disposition: Discharged to home or Selfcare 10/21/2024 9:00 AM AIR VALVE REPAIRER Ancillary Procedure [facility] - Cancer Center CT [address] [place] [address] Lamont Cerda MD #[address] [address] Discharge Disposition: Discharged to home or Selfcare 11/18/2024 9:00 AM CDT Office Visit [facility] - Cardiology - [place] #2 [place] [address] Abigail Hernandez APRN, SPACE SYSTEMS OPERATIONS MANAGER #2 [facility] [address] [place] [address] 11/28/2024 10:30 AM CDT Office Visit [facility] Medical Group - Family Medicine - [place] #2 [place] [address] Brian Colbert APRN, SPACE SYSTEMS OPERATIONS MANAGER #2 [facility] [address] [place] [address] 03/16/2025 8:30 AM CDT Office Visit [facility] - Pulmonology & Sleep Medicine [facility] #2 [place] [address] Karlie Cloud APRN, SPACE SYSTEMS OPERATIONS MANAGER #2 [facility] [address] [place] [address] documented as of this encounter Visit Diagnoses Not on filedocumented in this encounter Additional Health Concerns Assessment Noted Time PHQ-9 Depression Total Score: 8 05/30/20 23 10:39 AM CDT documented as of this encounter Care Teams Smoke And Flame Specialist Relationship Specialty Start Date End Date Lamont Cerda MD #2 [facility] [address] [place] [address] PCP - General Family Medicine 09/10/23 Chris Wong MD #2 [place] [address] Consulting Physician Pulmonary Disease 11/15/21 Abigail Hernandez APRN, SPACE SYSTEMS OPERATIONS MANAGER #2 [facility] [address] [place] [address] Nurse Practitioner Cardiology 08/22/23 Karlie Cloud APRN, SPACE SYSTEMS OPERATIONS MANAGER #2 [facility] [address] [place] [address] Nurse Practitioner Advanced Practice Nurse 11/20/22 documented as of this encounter
--- OUTSIDE RECORDS SUMMARY | 2024-10-14 10:50 | XMS_ITS | Clinical Summary ---
Author Organization [facility] Address [address] [place] [address] Care Team Providers Care Shipyard Painter Helper Name Role Phone Lamont Cerda MD Primary Care Provider [phone] Allergies Active Allergy Reactions Criticality Noted Date [...] on file Legal Sex Male 3:15 PM PACKING MACHINE INSPECTOR Gender Identity Not on file Sexual Orientation [...] Tdap) 06/07/202507/2015 Medical Devices Implanted Type Area Nutter Up Device Identifier Shelf Expiration Date Model / Serial / Lot Distil [employer] Edgar 192-123 Polaris Ultra Nautilus 5fr 2.1fr 26cm 2 Durometer Taper Tip Low Latex Free - Sn/A - [id number] Implanted:Qty: 1 on 12/13/2018 by Adam Dee MD at [facility] Stent Right: Ureter [employer] Edgar 09/01/2021 192-123 / N/A / [id number] Insurance Advance Directives For more information, please contact: [phone] * Full Code (Latest Code Status on File) Date Activated Date Inactivated Comments 01/09/2019 9:06 AM 01/09/2019 2:36 PM * Full Code Date Activated Date Inactivated Comments 12/13/2018 5:46 AM 12/13/2018 7:44 PM Care Teams Shipyard Painter Helper Relationship Specialty Start Date End Date Lamont Cerda MD 2 [place] [address] PCP - General Family Medicine 09/26/24
--- OUTSIDE RECORDS SUMMARY | 2024-10-14 10:50 | XMS_ITS | Encounter Summary ---
Author Organization [facility] Address [address] [place] [address] Phone Care Team Providers Care Reprint Sorter Name Role Phone Chris Wong MD Unavailable Abigail Hernandez APRN, REALTY SPECIALIST Unavailable + [phone] Lamont Cerda MD Primary Care Provider [phone] Karlie Cloud APRN, REALTY SPECIALIST Unavailable [phone] Reason for Visit * Reason Comments Medication Refill Encounter Details Date Type Department Care Team (Late st Contact Info) Description 12/10/2023 Refill [facility] - Pulmonology & Sleep Medicine [facility] #2 [place] [phone] Lamont Cerda MD #[address] [address] Medication Refill Social History Tobacco Use Types Packs/Day Years Used Date Smoking Tobacco: Former Cigarettes Q uit: 03/06/2004 Smokeless Tobacco: Never Alcohol Use Standard Drinks/Week Comments No 0 (1 standard drink = 0.6 oz pur e alcohol) [facility] Utilities Answer Date Recorded In the past [...] declined 11/13/2023 How often do you attend caodaism or mormon serv ices? Patient declined 11/13/2023 Do you belong to any clubs o r organizations such as caodaism groups, unions, fraternal or athletic groups, or [...] Score - Questions 1-9 8 10/0 11/2022 [facility] - Occupational Stress Questionnaire Answer Date Recorded [...] place to sleep or slept in a group home (including now)? Patient declined 11/13/2023 Sexually [...] PM CDT Medication(s) [facility] and [facility] Medication Refill Standing Order for Pediatricand [...] Dept 11/13/23 Office Visit Brian Colbert APRN, REALTY SPECIALIST [facility] 10/17/23 Telemedicine Lamont Cerda MD [facility] 09/13/23 Office Visit Lamont Cerda MD [facility] 09/10/23 Office Visit Karlie Cloud APRN, REALTY SPECIALIST [facility] 05/30/23 Office Visit Cezar Worthington MD [facility] 03/05/23 Office Visit Karlie Cloud APRN, GIRMA [facility] Showing recent visits within past 365 days and meeting all other requirements Future Appointments Date Type Provider Dept 12/18/23 Appointment Lamont Cerda MD [facility] 02/04/24 Appointment Brian Colbert APRN, GIRMA [facility] Showing future appointments within next 90 days and meeting all other requirements documented in this encounter Plan of Treatment Upcoming Encounters Date Type Department Care Team (Latest Contact Info) Description 10/18/2024 1:30 PM [facility] [address] [place] [address] Josh Hernandez MD [address] [place] [address] Discharge Disposition: Discharged to home or Selfcare 10/21/2024 9:00 AM CASE FILLER Ancillary Procedure [facility] [address] [place] [address] Lamont Cerda MD #2 [facility] [address] [place] [address] Discharge Disposition: Discharged to home or Selfcare 11/18/2024 9:00 AM CDT Office Visit [facility] - Cardiology - [place] #2 [place] [address] Abigail Hernandez APRN, REALTY SPECIALIST #2 [facility] [address] [place] [address] 11/28/2024 10:30 AM CDT Office Visit [facility] - Family Medicine - [place] #2 [place] [address] Brian Colbert APRN, REALTY SPECIALIST #2 [facility] [address] [place] [address] 03/16/2025 8:30 AM CDT Office Visit [facility] - Pulmonology & Sleep Medicine - [place] [address]2 [place] [address] Karlie Cloud APRN, REALTY SPECIALIST #2 [facility] [address] [place] [address] documented as of this encounter Visit Diagnoses Not on filedocumented in this encounter Additional Health Concerns Assessment Noted Time PHQ-9 Depression Total Score: 8 05/30/20 23 10:39 AM CDT documented as of this encounter Care Teams Reprint Sorter Relationship Specialty Start Date End Date Lamont Cerda MD #2 [facility] [address] [place] [address] PCP - General Family Medicine 09/10/23 Chris Wong MD #[address] [place] [address] Consulting Physician Pulmonary Disease 11/15/21 Abigail Hernandez APRN, REALTY SPECIALIST #2 [facility] [address] [place] [address] Nurse Practitioner Cardiology 08/22/23 Karlie Cloud APRN, GIRMA #2 [facility] [address] [place] [address] Nurse Practitioner Advanced Practice Nurse 11/20/22 documented as of this encounter
--- OUTSIDE RECORDS SUMMARY | 2024-10-14 10:50 | XMS_ITS | Patient Health Summary ---
Author Organization [facility] Address [address] [place] [address] Care Team Providers Care Coal Pulverizing Operator Name Role Phone Unavailable Primary Care Provider Unavailabl e Note from [facility] [place],non-owned Affiliates and Associated Physician Practices is amultiple site organization consisting of ambulatory clinics and hospital sitesin [place], [place], [place] and [place]. This disclosure is being madepursuant to the Care Everywhere program and may not contain all information available regarding this patient. Last updated 18.[facility] Social History Tobacco Use Types Packs/Day [...] RETENTION CYST. CODE 4 CPT Level III 69538 RELEASED BY CHRIS Moreno MISCELLANEOUS SAMPLES / Unknown 05/11/1999 9:05 AM CDT 05/11/1999 10:17 AM CDT Historical Provider LAB - PATHOLOGY/C YTOLOGY ORDERABLES
--- OUTSIDE RECORDS SUMMARY | 2024-10-14 10:50 | XMS_ITS | Encounter Summary ---
Author Organization [facility] Address [address] [place] [address] Phone Care Team Providers Care Audit Specialist Name Role Phone Chris Wong MD Unavailable Jaz Beckham MD Primary Care Provider Unav ailable Provider, None Primary Care Provider Unavailcourtney e Chris Wong MD Unavailable Cezar Worthington MD Primary Care Provider [phone] Abigail Hernandez NON CATEGORICAL PRESCHOOL TEACHER, SECTION WEAVER Unavailable + [phone] Lamont Cerda MD Primary Care Provider [phone] Karlie Cloud NON CATEGORICAL PRESCHOOL TEACHER, SECTION WEAVER Unavailable [phone] Reason for Referral * Radiology Services (Routine) - Closed Specialty Diagnoses / Procedures Referred By Contcj t Referred To Contact Radiology Diagnoses Pre-op testing Procedures EKG 12 LEAD Gokul Underwood MD #1 [place] [address] Phone: tel: fax: Referral ID Status Reason Start Date Expiration Date Visits Re quested Visits Authorized [id number] Closed 09/01/2020 1 1 R INSPECTOR Encounter Details Date Type Department Care Team (Late st Contact Info) Description 09/01/2020 Transcribe Orders [facility] Preop/Pacu II 1 [place] [address] Gokul Underwood MD #1 [place] [address] Pre-op testing (Primary Dx) Social History Tobacco [...] COVID-19? No / Unsure 08/30/2020 10:34 AM CHAIR INSPECTOR documented as of this encounter Plan of Treatment Upcoming Encounters Date Type Department Care Team (Latest Contact Info) Description 10/18/2024 1:30 PM CHAIR INSPECTOR [facility] [address] [place] [phone] Josh Hernandez MD [address] [place] [address] Discharge Disposition: Discharged to home or Selfcare 10/21/2024 9:00 AM CHAIR INSPECTOR [facility]illary [facility] [address] [place] [address] Lamont Cerda MD #[address] [address] Discharge Disposition: Discharged to home or Selfcare 11/18/2024 9:00 AM CDT [facility] #2 [place] [phone] Abigail Hernandez APRN, SECTION WEAVER #2 [facility] [address] [place] [address] 11/28/2024 10:30 AM CDT Office Visit [facility] - Family Medicine - [place] [address] [place] [address] Brian Colbert, NON CATEGORICAL PRESCHOOL TEACHER, SECTION WEAVER #2 [facility] [address] [place] [address] 03/16/2025 8:30 AM CDT Office Visit [facility] - Pulmonology & Sleep Medicine - [place] [address] [place] [address] Karlie Cloud, NON CATEGORICAL PRESCHOOL TEACHER, SECTION WEAVER #[address] [facility] [address] [place] [address] documented as of this encounter Results * EKG 12 LEAD (09/10/2020 1:46 PM CHAIR INSPECTOR) Ventricular Rate BPM EXTERNAL EKG Atrial Rate BPM EXTERNAL EKG P-R Interval 146 ms EXTERNAL EKG QRS Duration 86 ms EXTERNAL EKG Q-T Duration 368 ms EXTERNAL EKG QTC CALCULATION 406 ms EXTERNAL EKG P Barton 73 degrees EXTERNAL EKG R Barton 42 degrees EXTERNAL EKG T Barton 35 degrees EXTERNAL EKG 09/10/2020 1:46 PM CHAIR INSPECTOR Impressions EXTERNAL EKG - 09/11/2020 12:52 PM CHAIR INSPECTOR Sinus rhythm Low QRS voltages in precordial leads Comparison Summary: No serial comparison made Summary: Borderline ECG Confirmed by Dejon Mcdonough [id number] on 09/11/2020 12:52:35 PM Narrative Procedure Note Sudheer Ashford MD - 09/11/2020 IMPRESSION: Sinus rhythm Low QRS voltages in precordial leads Comparison Summary: No serial comparison made Summary: Borderline ECG Confirmed by Dejon Mcdonough [id number] on 09/11/2020 12:52:35 PM us Gokul Underwood MD IMG ECG ORDERABLES Final Resu lt EXTERNAL EKG * HEMOGLOBIN & HEMATOCRIT (H&H) (09/10/2020 1:38 PM CHAIR INSPECTOR) HEMOGLOBIN (HGB) 13.5 13.0 - 16.5 g/dL 09/10/2020 2:16 PM CHAIR INSPECTOR [facility] HEMATOCRIT (HCT) 42.2 38.0 - 50.0 % 09/10/2020 2:16 PM CHAIR INSPECTOR [facility] Blood Venipuncture / Unknown 09/10/2020 1:38 PM CHAIR INSPECTOR 09/10/2020 2:12 PM CHAIR INSPECTOR us Gokul Underwood MD HEMATOLOGY ORDERABLES Final R esult Performing Organization Address [facility] Co de Phone Number [facility] #[address] [place] [address] documented in this encounter Visit Diagnoses Diagnosis Pre-op testing- Primary Preoperative examination, unspecified Pre-op testing Preoperative examination, unspecified documented in this encounter Care Teams Audit Specialist Relationship Specialty Start Date End Date Jaz Beckham MD PCP - General Family Medicine 01/05/17 11/14/21 Provider, None [place] PCP - General 11/15/21 11/27/21 Cezar Worthington MD #[address] [address] PCP - General Family Medicine 11/28/21 09/09/23 Lamont Cerda MD #[address] [address] PCP - General Family Medicine 09/10/23 Chris Wong MD Consulting Physician Pulmonary Disease 11/20/22 4 Chris Wong MD #[address] [place] [address] Consulting Physician Pulmonary Disease 11/15/21 Abigail Hernandez APRN, SECTION WEAVER #2 [facility] [address] [place] [address] Nurse Practitioner Cardiology 08/22/23 Karlie Cloud APRN, SECTION WEAVER #[address] [address] Nurse Practitioner Advanced Practice Nurse 11/20/22 documented as of this encounter
--- OUTSIDE RECORDS SUMMARY | 2024-10-14 10:50 | XMS_ITS | Clinical Summary ---
Author Organization [facility] Address [address] [facility] [place] [address] Phone Care Team Providers Care Regional Company Truck Driver Name Role Phone Chris Wong MD Unavailable Abigail Hernandez APRN, BAKERY ASSISTANT Unavailable [phone]- [phone] Lamont Cerda MD Primary Care Provider [phone] Karlie Cloud VIDEO JOURNALIST, BAKERY ASSISTANT Unavailable [phone] Allergies Active Allergy Reactions Criticality Noted Date [...] Active fluticasone (FLONASE) 50 MCG/ACT Suspension 1 Ravia by Nasal route daily. Use in each [...] Encounters Date Type Department Care Team Description 10/09/2024 Transcribe Orders [facility] Patient Access Admitting 1 [place] [address] Josh Hernandez MD Chronic sinusitis, unspecified location (Primary Dx) 09/17/2024 Telephone [facility] Pulmonology & Sleep Medicine [facility] #2 [place] [address] Karlie Clodu APRN, GIRMA Prior Authorization (Dupixent) 09/16/2024 Results Follow-Up [facility] Pulmonology & Sleep Medicine [facility] #2 [place] [address] Karlie Cloud APRN, GIRMA 09/15/2024 9:00 AM LAND ACQUISITION ANALYST Office Visit [facility] Pulmonology & Sleep Medicine [facility] #2 [place] [address] Karlie Cloud APRN, GIRMA KADIE (obstructive sleep apnea) (Primary Dx); Eosinophilic asthma; Chronic rhinosinusitis with multiple nasal polyps Discharge Disposition: Discharged to home or Selfcare 09/15/2024 Travel 08/16/2024 [facility] [place] [address] Lamont Cerda MD Medication Refill 08/15/2024 Telephone [facility] #2 [facility] [address] Brian Colbert APRN, BAKERY ASSISTANT 08/13/2024 1:00 PM LAND ACQUISITION ANALYST Office Visit [facility] #2 [place] [address] Lamont Cerda MD Subacute maxillary sinusitis (Primary Dx); Left carpal tunnel syndrome; Obesity (BMI 30-39.9) Discharge Disposition: Discharged to home or Selfcare 08/13/2024 Travel 07/28/2024 [facility] #2 [place] [address] Karlie Cloud APRN, BAKERY ASSISTANT Medication Refill 07/21/2024 [facility]ill [facility] #2 [place] [address] Karlie Cloud APRN, BAKERY ASSISTANT Medication Refill 07/17/2024 [facility]ill [facility] #2 [place] [address] Chris Wong MD Medication Refill from Last [...] drink = 0.6 oz pur e alcohol) [facility] Utilities Answer Date Recorded In the past 12 months has [employer], gas, oil, or water [employer] threatened to shut off services in your home? Patient declined 11/13/2023 Social Connection and Isolation Panel [NHANES] A nswer Date Recorded In a typical week, how many times do you talk on the phone with family, friends, or neighbors? Patient declined 11/13/2023 How often do you get togethe r with friends or relatives? Patient declined 11/13/2023 How often do you attend mosque or jain serv ices? Patient declined 11/13/2023 Do you [...] Score - Questions 1-9 8 10/0 11/2022 [facility] Occupat ional [facility] - Occupational Stress Questionnaire Answer Date [...] place to sleep or slept in a fdc (including now)? Patient declined 11/13/2023 Sexually Active Control Partners Comments Yes Female Sex and Gender Information Value Date Recorded Sex Assigned at Not on file Legal Sex Male 12:35 AM CDT Gender Identity Not on file Sexual Orientation Not on file Last Filed Vital Signs Vital Sign Reading Time Taken Comments Blood Pressure 114/60 09/15/2024 9:01 AM LAND ACQUISITION ANALYST Pulse 59 09/15/2024 9:01 AM LAND ACQUISITION ANALYST Temperature 36.3 C (97.3 F) 09/15/2024 9:01 AM LAND ACQUISITION ANALYST Respiratory Rate 14 09/15/2024 9:01 AM LAND ACQUISITION ANALYST Oxygen Saturation 100% 09/15/2024 9:01 AM LAND ACQUISITION ANALYST Inhaled Oxygen Concentration - - Weight 105.6 kg (232 lb 11.2 oz) 09/15/2024 9:01 AM LAND ACQUISITION ANALYST Height 177.8 cm (5' 10 ) 09/15/2024 9:01 AM LAND ACQUISITION ANALYST Body Mass Index 33.39 09/15/2024 9:01 AM LAND ACQUISITION ANALYST Plan of Treatment Upcoming Encounters Date Type Department Care Team (Latest Contact Info) Description 10/18/2024 1:30 PM LAND ACQUISITION ANALYST [facility] [address] [place] [address] Josh Hernandez MD [address] [facility] [address] [place] [address] Discharge Disposition: Discharged to home or Selfcare 10/21/2024 9:00 AM LAND ACQUISITION ANALYST [facility]illary [facility] [address] [place] [address] Lamont Cerda MD #[address] [address] Discharge Disposition: Discharged to home or Selfcare 11/18/2024 9:00 AM CDT [facility] - [place] #2 [place] [address] Abigail Hernandez, VIDEO JOURNALIST, BAKERY ASSISTANT #2 [facility] [address] [place] [address] 11/28/2024 10:30 AM CDT [facility] Visit [facility] Family Medicine - [place] #2 [facility] [address] Brian Colbert, VIDEO JOURNALIST, BAKERY ASSISTANT #2 [facility] [address] [place] [address] 03/16/2025 8:30 AM CDT [facility] - [place] #2 [place] [address] Karlie Cloud, VIDEO JOURNALIST, BAKERY ASSISTANT #2 [facility] [address] [place] [address] Health Maintenance Due Date Last Done Comments Hepatitis C Virus (HCV) Screening 1967 Hepatitis B Immunization (1 of 3 - 19+ 3-dose series) 1986 Pneumococcal Immunization (5 0+ years) (1 of 2 - PCV) 1986 Colonoscopy 2012 Colorectal Cancer Screening 2012 Cologuard 2017 Immunochemical Fecal Occult Blood 2017 Zoster Immunization (1 of 2) 2017 Influenza Immunization (#1) 2024 SARS-COV-2 Immunization (3 - season) 2024 03/09/2021, 02/16/2021 Td Immunization Every [...] this topic Medical Devices Implanted Type Area Gelatin Powder Mixer Device Identifier Shelf Expiration Date Model / Serial / Lot Implant Nasal 16mm Steroid Release Zip Tie Propel Mometasone Furoate 370 Mcg Mini 4mm - [id number] Implanted:Qty: 2 on 09/13/2020 by Josh Hernandez MD at [facility] IMPLANT [employer] [id number] / [id number] Procedures Procedure Name Priority Date/Time Associated Diagnosis Comments CBC WITH AUTO DIFFERENTIAL Routine 09/16/2024 3:22 PM LAND ACQUISITION ANALYST Eosinophilic asthma COMPLETE BLOOD COUNT (CBC) WITH DIFF Routine 09/16/2024 3:22 PM LAND ACQUISITION ANALYST Eosinophilic asthma PSA SCREEN Routine 09/14/2023 8:38 AM LAND ACQUISITION ANALYST Screening for prostate cancer from Last 3 Months or Most Recently Relevant to Health Maintenance Results * CBC WITH AUTO DIFFERENTIAL (09/16/2024 3:22 PM LAND ACQUISITION ANALYST) WBC 6.71 4.00 - 12.00 10(3)/mcL 09/16/2024 3:56 PM LAND ACQUISITION ANALYST [facility] RBC 4.56 4.40 - 5.80 10(6)/mcL 09/16/2024 3:56 PM LAND ACQUISITION ANALYST [facility] HEMOGLOBIN (HGB) 13.8 13.0 - 16.5 g/dL 09/16/2024 3:56 PM LAND ACQUISITION ANALYST [facility] HEMATOCRIT (HCT) 40.9 38.0 - 50.0 % 09/16/2024 3:56 PM LAND ACQUISITION ANALYST [facility] MCV 89.7 82.0 - 96.0 fL 09/16/2024 3:56 PM [facility] MCH 30.3 26.0 - 32.0 pg 09/16/2024 3:56 PM [facility] MCHC 33.7 31.0 - 36.0 g/dL 09/16/2024 3:56 PM [facility] PLATELET COUNT 229 140 - 440 10(3)/mcL 09/16/2024 3:56 PM [facility] RDW 12.7 11.8 - 15.5 % 09/16/2024 3:56 PM [facility] MPV 10.6 8.0 - 12.6 fL 09/16/2024 3:56 PM [facility] NEUTROPHILS 46.0 40.0 - 68.0 % 09/16/2024 3:56 PM [facility] LYMPHOCYTES 37.3 19.0 - 49.0 % 09/16/2024 3:56 PM [facility] MONOCYTES 8.9 3.0 - 13.0 % 09/16/2024 3:56 PM [facility] EOSINOPHILS 6.9 0.0 - 8.0 % 09/16/2024 3:56 PM [facility] BASOPHILS 0.9 0.0 - 1.0 % 09/16/2024 3:56 PM [facility] ABSOLUTE NEUTROPHILS 3.09 1.40 - 5.30 10(3)/mcL 09/16/2024 3:56 PM [facility] ABSOLUTE LYMPHOCYTES 2.50 0.90 - 3.30 10(3)/mcL 09/16/2024 3:56 PM [facility] ABSOLUTE MONOCYTES 0.60 0.10 - 0.90 10(3)/mcL 09/16/2024 3:56 PM [facility] ABSOLUTE EOSINOPHIL 0.46 0.00 - 0.50 10(3)/mcL 09/16/2024 3:56 PM [facility] ABSOLUTE BASOPHILS 0.06 0.00 - 0.10 10(3)/mcL 09/16/2024 3:56 PM LAND ACQUISITION ANALYST [facility] NRBC PER 100 WBC 0 09/16/19 3:56 PM LAND ACQUISITION ANALYST [facility] Blood Venipuncture / Unknown 09/16/2024 3:22 PM LAND ACQUISITION ANALYST 09/16/2024 3:51 PM LAND ACQUISITION ANALYST Result [facility] Karlei Cloud APRN, CNP HEMATOLOGY ORDERABLES Final Result Performing Organization Address [facility] Co de Phone Number [facility] #1 [place] [address] * PSA SCREEN (09/14/2023 8:38 AM LAND ACQUISITION ANALYST) PSA SCREEN, TOTAL 0.92 <4.00 ng/mL 09/14/2023 9:57 AM LAND ACQUISITION ANALYST [facility] Blood Venipuncture / Unknown 09/14/2023 8:38 AM LAND ACQUISITION ANALYST 09/14/2023 9:03 AM LAND ACQUISITION ANALYST Narrative [facility] - 09/14/2023 9:57 AM LAND ACQUISITION ANALYST The [employer] Total PSA assay is a Chemiluminescent Microparticle Immunoassay (CMIA) for the quantitative determination of total PSA (both free PSA and PSA complexed to [id number]) in human serum. Total PSA values obtained with different assay methods, including Villa PSA assays, cannot be used interchangeably. Result [facility] Lamont Cerda MD CHEMISTRY ORDERABLES Final Result Performing Organization Address [facility] Co de Phone Number [facility] [address] [place] [address] from Last 3 Months or Most Recently Relevant to Health Maintenance Insurance MEDICAID [place] Care Teams Regional Company Truck Driver Relationship Specialty Start Date End Date Lamont Cerda MD #2 [facility] [address] [place] [address] PCP - General Family Medicine 09/10/23 Chris Wong MD #2 [place] [address] Consulting Physician Pulmonary Disease 11/15/21 Abigail Hernandez APRN, BAKERY ASSISTANT #2 [facility] [address] [place] [address] Nurse Practitioner Cardiology 08/22/23 Karlie Cloud APRN, BAKERY ASSISTANT #2 [facility] [address] [place] [address] Nurse Practitioner Advanced Practice Nurse 11/20/22
--- OUTSIDE RECORDS SUMMARY | 2024-10-14 10:50 | XMS_ITS | Referral Summary ---
Author Organization [facility] Address [address] [place] [address] Care Team Providers Care Cement Crusher Operator Name Role Phone Unavailable Primary Care Provider Unavailabl e Source Comments [facility],non-owned Affiliates and Associated Physician Practices is amultiple site organization consisting of ambulatory clinics and hospital sitesin [place], [place], [place] and [place]. This disclosure is being madepursuant to the Care Everywhere program and may not contain all information available regarding this patient. Last updated 18.[facility] [employer] Social History Tobacco Use Types Packs/Day Years Used Date Smoking Tobacco: Never Assessed Sex and Gender Information Value Date Recorded Sex Assigned at Not on file Gender Identity Not on file Sexual Orientation Not on file Plan of Treatment Not on file
== END 2024-10-14 10:31 | disposition home or self-care (01) ==
PROVIDERS: PCP Family Medicine; Visit Provider Otolaryngology
DX: J32.9 Chronic sinusitis, unspecified (principal)
CPT/HCPCS: 70486